=== PATIENT | male | born 1960 | race Hispanic/Latino ===

== ENCOUNTER 2019-01-25 15:26 | Emergency (ER) | payer OTHER ==
[~2019-01-25] VITALS: Ht 167.6 cm; Wt 81.6 kg
[~2019-01-25 15:26] MED LIST: BENAZEPRIL HCL20 MG ORAL; CYCLOBENZAPRINE10 MG ORAL; FLUTICASONE PRO16 G1 NASAL; IBUPROFEN600 MG ORAL; PSEUDOEPHEDRINE30 MG PO
--- NOTE | 2019-01-25 15:30 | NUR ---
ED Nurse Note: Pt came in from home due to RLQ abdominal pain x 1 week and vomiting x 1 episode, mass felt, confirmed by Dr. Boone that is it hernia. Pain 10/10 at this time. Emesis was undigested food, NO blood, NO bile. AOOx4, elevated BP upon arrival, ERMD aware. Will cont to monitor.
--- NOTE | 2019-01-25 15:44 | Emergency Room Report ---
History of Present Illness General Chief Complaint: Abdominal Pain Source: Patient Present Illness HPI Presents with 2 weeks of abdominal discomfort. This morning this became severe. He feels that big ball in the right lower quadrant it was not there before. He is status post appendectomy. He has not taken any medication for pain. He rates the pain 9-10/10, aching pressure and constant. No change in bowels. He vomited and denies any coffee grounds or blood. Status post appendectomy Status post coronary artery bypass graft surgery with 4 vessels. History of hypertension. He states that his blood pressures been normal after he had bypass surgery. Not diabetic but states he has had injury to his pancreas in the past. Clarification of the issue with the pancreas: He states he has a pancreatic mass that has not had full evaluation. Apparently he is due to have surgery at some point in the near future but has not been scheduled. Based on the CT scan he has a biliary stent. Allergies: Coded Allergies: No Known Allergies (Unverified , 08/14/14) Patient History Past Medical History: see triage record Past Surgical History: CABG, appy, other - Biliary stent Social History: Denies: smoking, alcohol use, drug use Social History Narrative - born in [facility] Reviewed Nursing Documentation: PMH: Agreed; PSxH: Agreed Nursing Documentation-PMH Hx Cardiac Problems: Yes Hx Hypertension: Yes Review of Systems All Other Systems: negative except mentioned in HPI Physical Exam Vital Signs Date Time Temp Pulse Resp B/P (MAP) Pulse Ox O2 Delivery O2 Flow Rate FiO2 01/25/19 15:16 97.7 87 16 180/90 (120) 98 Room Air Sp02 EP Interpretation: reviewed, normal General Appearance: well appearing, GCS 15, mild distress Head: normocephalic, atraumatic Eyes: bilateral eye normal inspection, bilateral eye PERRL, bilateral eye EOMI ENT: moist mucus membranes Neck: supple Respiratory: lungs clear, normal breath sounds Cardiovascular #1: regular rate, rhythm Cardiovascular #2: 2+ radial (R) Gastrointestinal: normal inspection, normal bowel sounds, non tender, non- distended, no rebound, guarding, tenderness, mass - Outside of the abdominal wall on the right-hand side 3 x 5 cm just underneath the appendectomy scar this is the site of his pain. Genitourinary: no CVA tenderness Musculoskeletal: back normal, gait/station normal, normal range of motion Neurologic: alert, oriented x3, grossly normal Psychiatric: mood/affect normal Skin: no rash, other - CABG and appendectomy scar Procedures Additional Procedure Procedure Narrative Reduction of hernia: After Dilaudid given, patient told to relax his abdomen and take a deep breath. With direct pressure hernia reduced by me. Tolerated well. His occurred prior to the CT scan. Medical Decision Making Diagnostic Impression: Primary Impression: Abdominal pain Qualified Codes: R10.31 - Right lower quadrant pain Additional Impressions: Spigelian hernia Pancreatic mass ER Course Patient presents with severe right lower quadrant pain and is post appendectomy. Differential includes incarcerated hernia, renal stone, diverticulitis, UTI amongst others. Based on exam I incarcerated spigelian hernia is most likely. Patient evaluated with chest x-ray, EKG and CT abdomen with contrast. Treated with IV hydration and analgesia. We will attempt to reduce the hernia after he receives analgesics. EKG with nonspecific ST-T wave changes. White count normal. After analgesia given hernia reduced by me. Still needs to have CT to identify if there is inflammation. The fact the white count is normal is encouraging. CT with pancreatic mass, inflammation RLQ (post reduction) + see results below. Pain improved but needs observation. Discussed with Dr. Key who accepts the patient. Patient initially refuses transfer then agreed to go for observation. Laboratory Tests Test 01/25/19 15:40 White Blood Count 8.8 K/UL (4.8-10.8) Red Blood Count 4.28 M/UL (4.70-6.10) L Hemoglobin 11.4 G/DL (14.2-18.0) L Hematocrit 34.9 % (42.0-52.0) L Mean Corpuscular Volume 82 FL (80-99) Mean Corpuscular Hemoglobin 26.8 PG (27.0-31.0) L Mean Corpuscular Hemoglobin Concent 32.8 G/DL (32.0-36.0) Red Cell Distribution Width 14.5 % (11.6-14.8) Platelet Count 272 K/UL (150-450) Mean Platelet Volume 7.1 FL (6.5-10.1) Neutrophils (%) (Auto) 71.6 % (45.0-75.0) Lymphocytes (%) (Auto) 20.4 % (20.0-45.0) Monocytes (%) (Auto) 6.8 % (1.0-10.0) Eosinophils (%) (Auto) 0.6 % (0.0-3.0) Basophils (%) (Auto) 0.6 % (0.0-2.0) Prothrombin Time 10.9 SEC (9.30-11.50) Prothrombin Time INR 1.0 (0.9-1.1) PTT 21 SEC (23-33) L Urine Color Yellow Urine Appearance Clear Urine pH 5 (4.5-8.0) Urine Specific [place] 1.020 (1.005-1.035) Urine Protein 2+ (NEGATIVE) H Urine Glucose (UA) 4+ (NEGATIVE) H Urine Ketones 1+ (NEGATIVE) H Urine Blood Negative (NEGATIVE) Urine Nitrite Negative (NEGATIVE) Urine Bilirubin Negative (NEGATIVE) Urine Urobilinogen Normal MG/DL (0.0-1.0) Urine Leukocyte Esterase Negative (NEGATIVE) Urine RBC 0 /HPF (0 - 0) Urine WBC 0 /HPF (0 - 0) Urine Squamous Epithelial Cells Occasional /LPF Urine Calcium Oxalate Crystals Many /LPF (NONE) Urine Bacteria Occasional /HPF (NONE) Sodium Level 139 MMOL/L (136-145) Potassium Level 3.6 MMOL/L (3.5-5.1) Chloride Level 102 MMOL/L (98-107) Carbon Dioxide Level 25 MMOL/L (21-32) Anion Gap 12 mmol/L (5-15) Blood Urea Nitrogen 13 mg/dL (7-18) Creatinine 0.8 MG/DL (0.55-1.30) Estimate Glomerular Filtration Rate > 60 mL/min (>60) Glucose Level 378 MG/DL (74-106) H Calcium Level 9.6 MG/DL (8.5-10.1) Total Bilirubin 0.5 MG/DL (0.2-1.0) Aspartate Amino Transferase (AST) 22 U/L (15-37) Alanine Aminotransferase (ALT) 46 U/L (12-78) Alkaline Phosphatase 183 U/L (46-116) H Total Protein 7.6 G/DL (6.4-8.2) Albumin 3.6 G/DL (3.4-5.0) Globulin 4.0 g/dL Albumin/Globulin Ratio 0.9 (1.0-2.7) L Lipase 249 U/L (73-393) EKG Diagnostic Results Rate: normal Rhythm: NSR ST Segments: no acute changes - Nonspecific ST-T wave changes Rhythm Strip Diag. Results EP Interpretation: yes Rhythm: NSR, no PVC's, no ectopy CT/MRI/US Diagnostic Results CT/MRI/US Diagnostic Results : Imaging Test Ordered: abd pelvis Impression Pancreatic head mass heterogeneous hypodense measuring 27 x 17mm. Concern for neoplasm. Mild dilatation of the main pancreatic duct. Numerous hypodense small lesions involving the liver. Too small to characterize. Intra-peritoneal bili identified. Biliary stent identified. Distended gallbladder with air at the gallbladder fundus. No lobular wall thickening or surrounding fluid Dilated fluid-filled loops of small bowel in the right lower to mid abdomen raise concern for developing bowel obstruction process. Last Vital Signs Date Time Temp Pulse Resp B/P (MAP) Pulse Ox O2 Delivery O2 Flow Rate FiO2 01/25/19 21:30 71 19 118/69 100 Room Air 01/25/19 18:49 97.7 Status: improved Disposition: XFER SHT-TRM HOSP Condition: Serious Jimbo Boone MD Jan 25, 2019 15:44
[2019-01-25] MEDS ORDERED: HYDROmorphone 1 MG in NS 55 ML IV ONE (15:45)
[2019-01-25] MEDS ORDERED: Omnipaque-300 100ml vial INJ PRN (16:00)
[2019-01-25 16:03] LABS: BASOPHILS % (AUTO) 0.6 % (0.0-2.0); EOSINOPHILS % (AUTO) 0.6 % (0.0-3.0); HEMATOCRIT 34.9 % (42.0-52.0); HEMOGLOBIN 11.4 G/DL (14.2-18.0); LYMPHOCYTES % (AUTO) 20.4 % (20.0-45.0); MEAN CORPUSCULAR VOLUME 82 FL (80-99); MONOCYTES % (AUTO) 6.8 % (1.0-10.0); NEUTROPHILS % (AUTO) 71.6 % (45.0-75.0); PLATELET COUNT 272 K/UL (150-450); RED BLOOD COUNT 4.28 M/UL (4.70-6.10); RED CELL DISTRIBUTION WIDTH 14.5 % (11.6-14.8); WHITE BLOOD COUNT 8.8 K/UL (4.8-10.8)
[2019-01-25 16:05] LABS: APPEARANCE,URINE CLEAR; BILIRUBIN, URINE NEGATIVE (NEGATIVE); GLUCOSE, URINE (UA) 4+ (NEGATIVE); KETONES,URINE 1+ (NEGATIVE); LEUKOCYTE ESTERASE ,URINE NEGATIVE (NEGATIVE); NITRITE,URINE NEGATIVE (NEGATIVE); PH,URINE 5 (4.5-8.0); PROTEIN,URINE 2+ (NEGATIVE); UROBILINOGEN,URINE NORMAL MG/DL (0.0-1.0)
[2019-01-25 16:07] LABS: COLOR,URINE YELLOW
[2019-01-25 16:19] LABS: ANION GAP 12 mmol/L (5-15); BLOOD UREA NITROGEN 13 mg/dL (7-18); CALCIUM 9.6 MG/DL (8.5-10.1); CARBON DIOXIDE 25 MMOL/L (21-32); CHLORIDE 102 MMOL/L (98-107); CREATININE 0.8 MG/DL (0.55-1.30); POTASSIUM 3.6 MMOL/L (3.5-5.1); SODIUM 139 MMOL/L (136-145)
[2019-01-25 16:22] LABS: ALANINE AMINOTRANSFERASE 46 U/L (12-78); ALBUMIN 3.6 G/DL (3.4-5.0); ALBUMIN/GLOBULIN RATIO 0.9 (1.0-2.7); ALKALINE PHOSPHATASE 183 U/L (46-116); ASPARTATE AMINO TRANSFERASE 22 U/L (15-37); BILIRUBIN,TOTAL 0.5 MG/DL (0.2-1.0)
[2019-01-25 16:39] VITALS: BP 124/60
--- NOTE | 2019-01-25 17:50 | Diagnostic Imaging Report ---
CT ABDOMEN AND PELVIS WITH CONTRAST INDICATION: Abdominal pain TECHNIQUE: Continuous helical transaxial imaging of the abdomen and pelvis was obtained from the lung bases to the pubic symphysis during intravenous contrast administration. Coronal 2-D reformats were also obtained. Study obtained in a Siemens sensation [address] Automatic Exposure Control was utilized. Total Dose length Product (DLP): 800.[address] Dose Index Volume (CTDIvol): 13.2 mGy COMPARISON: None FINDINGS: Lower chest:: Minimal dependent subsegmental atelectasis. Hepatobiliary:: There is extensive, predominantly central pneumobilia with an indwelling common bile duct stent. There are innumerable subcentimeter and 1 cm hypodensities throughout the liver parenchyma. Gallbladder is mildly distended and contains antidependent focus of gas. Genitourinary:: Marked prostatomegaly. Bladder is unremarkable. No hydronephrosis. Scattered subcentimeter bilateral renal cysts. Adrenals:: Unremarkable. Pancreas:: In the pancreatic head, there is an ill-defined heterogeneously hypodense mass measuring approximately 2.7 x 1.7 cm in axial dimensions. The main pancreatic duct is dilated, measuring approximately 4 mm in diameter. The main pancreatic duct is dilated, measuring approximately 4 mm in diameter. Pancreatic body and tail are unremarkable. Gastrointestinal:: There are scattered loops of small bowel distended with gas and fluid, some of which demonstrate air-fluid levels. Appendix is surgically absent. In the pancreatic head, there is an ill-defined heterogeneously hypodense mass measuring approximately 2.7 x 1.7 cm in axial dimensions. There is moderate stool burden in the rectal vault. Spleen: : Unremarkable. Peritoneum:: No significant free fluid or free air. Moderate fat-containing Spigelian hernia in the right lower quadrant. Bones and soft tissues:: There are multilevel discogenic degenerative changes of the visualized spine. IMPRESSION: 1. Ill-defined pancreatic head mass, corresponding to patient's stated history of known pancreatic mass, which should be considered neoplastic until proven otherwise. 2. Status post common bile duct stenting with resulting pneumobilia. 3. Innumerable hepatic hypodensities, which are too small to accurately characterize on single phase contrast examination and some of which may represent cysts. However, given presence of pancreatic head mass, findings are strongly suspicious for metastases. 4. Scattered dilated loops of small bowel, a nonspecific finding but which could represent gastroenteritis or ileus. These findings are concordant with the [facility] preliminary report. The CT scanner at [facility] is accredited by the [employer] and the scans are performed using protocols designed to limit radiation exposure to as low as reasonably achievable to attain images of sufficient resolution adequate for diagnostic evaluation.
--- NOTE | 2019-01-25 18:09 | NUR ---
ED Nurse Note: Dr. Boone communicated with pt that he will be transferred to another facility.
[2019-01-25 18:49] VITALS: BP 139/86
[2019-01-25 19:40] VITALS: BP 124/77
--- NOTE | 2019-01-25 20:59 | NUR ---
ER Nurse Note: Talked to Marcy, case finishing machine adjuster, about CT results. Per Marcy, she will transer the case to Jimbo, wedding coordinator for possible transfer admission.
--- NOTE | 2019-01-25 21:18 | NUR ---
ED Nurse Note: [facility] unit 617 will transfer pt. vital signs are: HR 71 SpO2: 100% on room air RR: 19 BP: 118/69
[2019-01-25 21:30] VITALS: BP 118/69
--- NOTE | 2019-01-25 21:50 | NUR ---
ED Nurse Note: report given to Phuong SUERO at [facility]
--- NOTE | 2019-01-26 09:52 | Diagnostic Imaging Report ---
Indication: Reason For Exam: ABD PAIN Technique: Single AP view of the chest. Comparison: Chest radiograph dated 08/14/2014 Findings: No cardiomegaly. Coronary stents are noted. No airspace consolidation, pleural effusion, or pneumothorax. No acute osseous or normality. Median sternotomy wires aren't preserved alignment. IMPRESSION: No radiographic evidence of acute cardiopulmonary process.
--- NOTE | 2019-01-28 07:32 | Cardiology Report ---
APPROVED REPORT EKG Measurement Heart [id number] Normal sinus rhythm Inferior infarct, age undetermined Abnormal ECG
== END 2019-01-25 21:30 | disposition short-term general hospital (02) ==
LOC: EDBD 15:26 → EMR 16:45 → EDBEDREQ 18:06 → EMR 21:30
DX: R10.31 Right lower quadrant pain (principal); K43.9 Ventral hernia without obstruction or gangrene; K86.9 Disease of pancreas, unspecified; I10 Essential (primary) hypertension; Z90.49 Acquired absence of other specified parts of digestive tract; Z95.1 Presence of aortocoronary bypass graft; Z95.5 Presence of coronary angioplasty implant and graft
CPT/HCPCS: 36415; 71045; 74177; 80053; 81003; 83690; 85025; 85610; 85730; 86850; 86900; 86901; 93005; 96361; 96374; 96375; J1170; J2405; Q9967; Z7502; 99285; J7030

== ENCOUNTER 2019-02-23 17:53 | Inpatient (IN) | payer OTHER ==
[~2019-02-23] VITALS: Ht 172.7 cm; Wt 65.4 kg
[2019-02-23 18:00] VITALS: BP 112/66
--- NOTE | 2019-02-23 18:00 | NUR ---
ED Nurse Note: Pt brought in by [facility] [id number] from home for c/o generalized weakness and abdominal pain onset 4 days ago. Pt states he had a fall 4 days ago where he landed on his abdomen. His abdomen has a healed incision scar s/p surgery on February 03 to remove liver cancer. Pt states he has become more weak and also fell again two days ago. Pt denies any LOC or head injury. Pt also reports bilateral feet swelling since the fall 4 days ago. Pt has hx of liver cancer. Pt is alert, awake and oriented x4, breathing is normal and unlabored, speaking in full sentences. Pt states abdominal pain is currently aching and 10/10. Pt placed on cardiac cath technician, placed in gown and will continue to monitor.
[2019-02-23] MEDS ORDERED: Omnipaque-300 100ml vial INJ PRN (18:15)
[2019-02-23] MEDS ORDERED: Morphine Sulfate 4mg/ml Inj (IV USE ONLY) IVP ONE (18:15)
[2019-02-23 18:38] LABS: HEMATOCRIT 13.8 % (42.0-52.0); MEAN CORPUSCULAR VOLUME 72 FL (80-99); PLATELET COUNT 199 K/UL (150-450); RED BLOOD COUNT 1.91 M/UL (4.70-6.10); RED CELL DISTRIBUTION WIDTH 18.8 % (11.6-14.8); WHITE BLOOD COUNT 10.2 K/UL (4.8-10.8)
[2019-02-23 18:40] LABS: ANION GAP 11 mmol/L (5-15); BLOOD UREA NITROGEN 23 mg/dL (7-18); CALCIUM 8.2 MG/DL (8.5-10.1); CARBON DIOXIDE 22 MMOL/L (21-32); CHLORIDE 101 MMOL/L (98-107); CREATININE 0.7 MG/DL (0.55-1.30); POTASSIUM 3.9 MMOL/L (3.5-5.1); SODIUM 134 MMOL/L (136-145)
[2019-02-23 18:45] LABS: ALANINE AMINOTRANSFERASE 104 U/L (12-78); ALBUMIN 2.5 G/DL (3.4-5.0); ALBUMIN/GLOBULIN RATIO 0.7 (1.0-2.7); ALKALINE PHOSPHATASE 433 U/L (46-116); ASPARTATE AMINO TRANSFERASE 78 U/L (15-37); BILIRUBIN,TOTAL 0.5 MG/DL (0.2-1.0)
--- NOTE | 2019-02-23 18:57 | NUR ---
HAND-OFF: Report given to PIO Lopez. endorsed pending urine sample collection and CT scan.
[2019-02-23 19:08] LABS: INR 1.2 (0.9-1.1)
[2019-02-23 19:12] LABS: HEMATOCRIT 11.9 % (42.0-52.0); MEAN CORPUSCULAR VOLUME 73 FL (80-99); PLATELET COUNT 165 K/UL (150-450); RED BLOOD COUNT 1.63 M/UL (4.70-6.10); RED CELL DISTRIBUTION WIDTH 18.7 % (11.6-14.8); WHITE BLOOD COUNT 9.2 K/UL (4.8-10.8)
[2019-02-23 19:16] LABS: HEMOGLOBIN 3.4 G/DL (14.2-18.0)
--- NOTE | 2019-02-23 20:14 | Diagnostic Imaging Report ---
Indication: Abdominal pain Technique: Continuous helical transaxial imaging of the abdomen and pelvis was obtained from the lung bases to the pubic symphysis during intravenous contrast administration. Coronal 2-D reformats were also obtained. Study obtained in a Siemens sensation [address] Automatic Exposure Control was utilized. Total Dose length Product (DLP): 792.[address] Dose Index Volume (CTDIvol): 13.4 mGy Comparison: 01/25/2019 CT Findings: There are multiple nodules within the liver increased in size and number compared to the prior study. Findings consistent with metastatic neoplasm. There is a mass in the area of the pancreatic head likely involving the duodenum. Biliary stent previously demonstrated is no longer seen. There is pneumobilia present. The patient has had interval stomach surgery with the staple line noted in the stomach with evidence of resection of the body and antrum of the stomach. There is no evidence of bowel obstruction. Prostate is prominent. Bladder is mildly distended. There is no hydronephrosis. Adrenal glands spleen and kidneys are unremarkable. Mild aortoiliac calcifications are noted. IMPRESSION: Status post interval removal of a CBD stent. Persistent pneumobilia indicating patency of the CBD. Multiple, worsening liver hypodensities consistent with metastatic neoplasm. Pancreatic head mass consistent with the given history of pancreatic CTA. Status post interval partial stomach resection. Prostate hypertrophy and other incidental findings as above. [facility] has communicated the preliminary results to the Emergency Department. Their findings are largely concordant with this report. The CT scanner at [facility] is accredited by the [employer] and the scans are performed using dose optimization techniques as appropriate to a performed exam including Automatic Exposure control.
[2019-02-23 20:15] VITALS: BP 106/55
--- NOTE | 2019-02-23 20:15 | NUR ---
ED Nurse Note: First unit of blood was started, patient's VSS at this time.
[2019-02-23 20:30] VITALS: BP 100/58
--- NOTE | 2019-02-23 20:30 | NUR ---
ED Nurse Note: 15 min passed, no blood transfusion reaction noticed, VSS at this time.
--- NOTE | 2019-02-23 20:50 | Emergency Room Report ---
History of Present Illness General Chief Complaint: Generalized Weakness Source: Patient, Family Member Present Illness HPI 58-year-old male presents ED for evaluation. Brought in by EMS from home. Increased weakness. Started a few days ago. States that he has been diagnosed with pancreatic cancer. Had surgery few weeks ago at [facility] where they told him the cancer is too far progressed. Is currently scheduled for chemo or radiation. Patient states that since the surgery he had a fall and has been having increased pain in his abdomen. 10 out of 10, sharp, nonradiating. Denies fevers chills. States he has been having palpitations as well. Denies chest pain. Denies shortness of breath. No other aggravating relieving factors. Denies any other associated symptoms Allergies: Coded Allergies: No Known Allergies (Unverified , 08/14/14) Patient History Past Medical History: other - cancer Past Surgical History: none Pertinent Family History: none Social History: Denies: smoking, alcohol use, drug use Reviewed Nursing Documentation: PMH: Agreed; PSxH: Agreed Nursing Documentation-PMH Past Medical History: No History, Except For Hx Cardiac Problems: Yes Hx Hypertension: Yes Hx Cancer: Yes - liver cancer Review of Systems All Other Systems: negative except mentioned in HPI Physical Exam Vital Signs Date Time Temp Pulse Resp B/P (MAP) Pulse Ox O2 Delivery O2 Flow Rate FiO2 02/23/19 17:47 97.5 107 16 103/59 (74) 98 Room Air Sp02 EP Interpretation: reviewed, normal General Appearance: alert, GCS 15, non-toxic, cachetic Head: normocephalic, atraumatic Eyes: bilateral eye normal inspection, bilateral eye PERRL ENT: hearing grossly normal, normal pharynx, no angioedema, normal voice Neck: full range of motion, supple/symm/no masses Respiratory: chest non-tender, lungs clear, normal breath sounds, speaking full sentences Cardiovascular #1: regular rate, rhythm, no edema Cardiovascular #2: 2+ carotid (R), 2+ carotid (L), 2+ radial (R), 2+ radial (L) , 2+ dorsalis pedis (R), 2+ dorsalis pedis (L) Gastrointestinal: normal bowel sounds, soft, non-distended, no guarding, no rebound, tenderness, other - surgical scar abdomen. Rectal: deferred Genitourinary: normal inspection, no CVA tenderness Musculoskeletal: back normal, normal range of motion, gait/station normal, non- tender Neurologic: alert, motor strength/tone normal, oriented x3, sensory intact, responsive, speech normal Psychiatric: judgement/insight normal, memory normal, mood/affect normal, no suicidal/homicidal ideation Reflexes: 3+ bicep (R), 3+ bicep (L), 3+ tricep (R), 3+ tricep (L), 3+ knee (R) , 3+ knee (L) Skin: pallor Lymphatic: no adenopathy Procedures Critical Care Time Critical Care Time i. I feel this is a highly complex case requiring extensive working including EKG/Rhythm strip, Xray/CT/US, Blood/urine lab work, repeat exams while in ED, and administration of strong opiates/narcotics for pain control, admission to hospital or close patient follow up. Total time: 45 min bedside evaluation and treatment excludes procedures (EKG). Reason for critical care: severe anemia, elevated troponin Possible complications: hypotension, hypertension, DE, shock, arrhythmias, metabolic acidosis, end organ damage, respiratory failure. Interventions: labs, IVFs, EKG, pain meds, CT Course: Patient presenting with increased weakness, abdominal pain status post fall. Recently diagnosed with pancreatic cancer with mets. Hemoglobin 3.4. Troponin slightly elevated. Likely demand ischemia. T wave inversions in lateral leads. CT shows pancreatic mass with mets. Blood transfusion ordered and started in ED Consultations: nursing staff, EMS, family Performed by: Dr Guzman Tolerated well condition = serious j. because of unstable vital signs this patient had a condition that could potentially threaten life or limb. I feel this is a critical patient who required my full attention while patient was considered critical. Total Critical Care Time excluding procedures was greater than 45 minutes Medical Decision Making Diagnostic Impression: Primary Impression: Episode of generalized weakness Additional Impressions: Pancreatic cancer Qualified Codes: C25.9 - Malignant neoplasm of pancreas, unspecified Metastasis Qualified Codes: C79.9 - Secondary malignant neoplasm of unspecified site Elevated troponin Severe anemia ER Course Hospital Course 58 yo M presents with abd pain s/p fall.h/o pancreatic cancer Differential diagnoses include: obstruction, dehydration, viscus perforation Clinical course Patient placed on stretcher. quality assurance monitor chassis. After initial history and physical I ordered labs, IV fluids, UA, pain medication and CT scan Labs - no leukocytosis, Hb 3.4. electrolytes ok, LFTs elevated, Trop 0.067 CT abdomen and pelvis - pancreatit mass with mets. no perforation or intraperitoneal bleeding Vitals stable. Blood transfusion started. Discussed findings with patient. Case discussed with Dr. Hernandez and he agreed to accept the patient to his service for further care and support I feel this is a highly complex case requiring extensive working including EKG/ Rhythm strip, Xray/CT/US, Blood/urine lab work, repeat exams while in ED, and administration of strong opiates/narcotics for pain control, admission to hospital or close patient follow up. Diagnosis - episode of generalized weakness, pancreatic cancer, metastasis, elevated troponin, severe anemia Patient admitted to telemetry in serious condition Labs Test 02/23/19 18:20 02/23/19 19:00 White Blood Count 10.2 K/UL (4.8-10.8) 9.2 K/UL (4.8-10.8) Red Blood Count 1.91 M/UL (4.70-6.10) 1.63 M/UL (4.70-6.10) Hemoglobin 4.0 G/DL (14.2-18.0) 3.4 G/DL (14.2-18.0) Hematocrit 13.8 % (42.0-52.0) 11.9 % (42.0-52.0) Mean Corpuscular Volume 72 FL (80-99) 73 FL (80-99) Mean Corpuscular Hemoglobin 20.7 PG (27.0-31.0) 20.8 PG (27.0-31.0) Mean Corpuscular Hemoglobin Concent 28.7 G/DL (32.0-36.0) 28.5 G/DL (32.0-36.0) Red Cell Distribution Width 18.8 % (11.6-14.8) 18.7 % (11.6-14.8) Platelet Count 199 K/UL (150-450) 165 K/UL (150-450) Mean Platelet Volume 6.2 FL (6.5-10.1) 6.3 FL (6.5-10.1) Neutrophils (%) (Auto) % (45.0-75.0) % (45.0-75.0) Lymphocytes (%) (Auto) % (20.0-45.0) % (20.0-45.0) Monocytes (%) (Auto) % (1.0-10.0) % (1.0-10.0) Eosinophils (%) (Auto) % (0.0-3.0) % (0.0-3.0) Basophils (%) (Auto) % (0.0-2.0) % (0.0-2.0) Differential Total Cells Counted 100 Neutrophils % (Manual) 86 % (45-75) Lymphocytes % (Manual) 7 % (20-45) Monocytes % (Manual) 6 % (1-10) Eosinophils % (Manual) 0 % (0-3) Basophils % (Manual) 0 % (0-2) Band Neutrophils 1 % (0-8) Nucleated Red Blood Cells 3 /100 WBC Platelet Estimate Adequate Platelet Morphology Normal Polychromasia 1+ Hypochromasia 4+ Anisocytosis 3+ Microcytosis 2+ Prothrombin Time 12.7 SEC (9.30-11.50) Prothromb Time International Ratio 1.2 (0.9-1.1) Activated Partial Thromboplast Time 22 SEC (23-33) Sodium Level 134 MMOL/L (136-145) Potassium Level 3.9 MMOL/L (3.5-5.1) Chloride Level 101 MMOL/L (98-107) Carbon Dioxide Level 22 MMOL/L (21-32) Anion Gap 11 mmol/L (5-15) Blood Urea Nitrogen 23 mg/dL (7-18) Creatinine 0.7 MG/DL (0.55-1.30) Estimat Glomerular Filtration Rate > 60 mL/min (>60) Glucose Level 256 MG/DL (74-106) Calcium Level 8.2 MG/DL (8.5-10.1) Total Bilirubin 0.5 MG/DL (0.2-1.0) Aspartate Amino Transf (AST/SGOT) 78 U/L (15-37) Alanine Aminotransferase (ALT/SGPT) 104 U/L (12-78) Alkaline Phosphatase 433 U/L (46-116) Troponin I 0.067 ng/mL (0.000-0.056) Total Protein 6.2 G/DL (6.4-8.2) Albumin 2.5 G/DL (3.4-5.0) Globulin 3.7 g/dL Albumin/Globulin Ratio 0.7 (1.0-2.7) Lipase 39 U/L (73-393) EKG Diagnostic Results Rate: normal Rhythm: NSR ST Segments: other - twave inversions in lateral leads ASA given to the pt in ED: No Rhythm Strip Diag. Results EP Interpretation: yes Rhythm: NSR, no PVC's, no ectopy CT/MRI/US Diagnostic Results CT/MRI/US Diagnostic Results : Imaging Test Ordered: CT A/P Impression Comparison CT 01/25/2019 Pancreatic head mass again visualized which appears centrally necrotic. Atrophy of the upstream pancreas with ductal dilatation. The pancreatic head mass involves the second segment of the duodenum. Recent postsurgical changes from a hepaticojejunostomy. A few foci of gas within the abdominal wall, postsurgical. No free air. No obstruction. Increased number and increased size of the innumerable hepatic metastatic lesions. No portal vein thrombosis. Right lower quadrant fat-containing hernia. Prostatomegaly. Last Vital Signs Date Time Temp Pulse Resp B/P (MAP) Pulse Ox O2 Delivery O2 Flow Rate FiO2 02/23/19 20:30 97.0 80 14 02/23/19 18:00 Room Air 02/23/19 18:00 112/66 100 Status: improved Disposition: ADMITTED INPATIENT Condition: Serious Referrals: [facility],REFERR[facility] (PCP) Misha Guzman MD Feb 23, 2019 20:50
--- NOTE | 2019-02-23 21:48 | History & Physical ---
History and Physical History & Physicial History and Physical HPI Patient is a 58-year-old man with history of Metastatic Pancreatic Cancer with extensive Liver Metastases, admitted with severe Anemia, had complained of increasing weakness, palpitations for a few days. Had surgery few weeks ago at [facility] where they told him the cancer is too far progressed. Awaiting chemo and/or radiation. Patient states that since the surgery he had a fall and has been having increased pain in his abdomen. Denies fevers chills , chest pain, shortness of breath. Allergies: No Known Allergies Patient History Past Medical History: Metastatic Pancreatic Cancer with extensive Liver Metastases, Hypertension, Hypertensive Heart Disease Past Surgical History: Recent abdominal surgery Social History: Denies: smoking, alcohol use, drug use All Other Systems: negative except mentioned in HPI Physical Exam Vital Signs Noted Date Time Temp Pulse Resp B/P (MAP) Pulse Ox O2 Delivery O2 Flow Rate FiO2 02/23/19 17:47 97.5 107 16 103/59 (74) 98 Room Air General Appearance: alert, GCS 15, non-toxic, cachetic, pale Head: normocephalic, atraumatic Eyes: bilateral eye normal inspection, bilateral eye PERRL ENT: hearing grossly normal, normal pharynx, no angioedema, normal voice Neck: full range of motion, supple/symm/no masses/no lN Respiratory: chest non-tender, lungs clear, normal breath sounds, speaking full sentences Cardiovascular: regular rate, rhythm, HS1, HS2 normal, no edema Gastrointestinal: normal bowel sounds, soft, non-distended, no guarding, no rebound, tenderness, other - surgical scar abdomen. Rectal: deferred Genitourinary: normal inspection, no CVA tenderness Musculoskeletal: back normal, normal range of motion, gait/station normal, non- tender Neurologic: alert, motor strength/tone normal, oriented x3, sensory intact, responsive, speech normal Skin: pallor Impression: Severe Anemia Episode of generalized weakness Metastatic Pancreatic cancer Elevated troponin, possibly demand related Hypertension Plan: Transfuse PRN Protonix IVF PRN Will need GI/Cardiology Consults [employer] medications PPX O2 PRN Labs Test 02/23/19 18:20 02/23/19 19:00 White Blood Count 10.2 K/UL (4.8-10.8) 9.2 K/UL (4.8-10.8) Red Blood Count 1.91 M/UL (4.70-6.10) 1.63 M/UL (4.70-6.10) Hemoglobin 4.0 G/DL (14.2-18.0) 3.4 G/DL (14.2-18.0) Hematocrit 13.8 % (42.0-52.0) 11.9 % (42.0-52.0) Mean Corpuscular Volume 72 FL (80-99) 73 FL (80-99) Mean Corpuscular Hemoglobin 20.7 PG (27.0-31.0) 20.8 PG (27.0-31.0) Mean Corpuscular Hemoglobin Concent 28.7 G/DL (32.0-36.0) 28.5 G/DL (32.0-36.0) Red Cell Distribution Width 18.8 % (11.6-14.8) 18.7 % (11.6-14.8) Platelet Count 199 K/UL (150-450) 165 K/UL (150-450) Mean Platelet Volume 6.2 FL (6.5-10.1) 6.3 FL (6.5-10.1) Neutrophils (%) (Auto) % (45.0-75.0) % (45.0-75.0) Lymphocytes (%) (Auto) % (20.0-45.0) % (20.0-45.0) Monocytes (%) (Auto) % (1.0-10.0) % (1.0-10.0) Eosinophils (%) (Auto) % (0.0-3.0) % (0.0-3.0) Basophils (%) (Auto) % (0.0-2.0) % (0.0-2.0) Differential Total Cells Counted 100 Neutrophils % (Manual) 86 % (45-75) Lymphocytes % (Manual) 7 % (20-45) Monocytes % (Manual) 6 % (1-10) Eosinophils % (Manual) 0 % (0-3) Basophils % (Manual) 0 % (0-2) Band Neutrophils 1 % (0-8) Nucleated Red Blood Cells 3 /100 WBC Platelet Estimate Adequate Platelet Morphology Normal Polychromasia 1+ Hypochromasia 4+ Anisocytosis 3+ Microcytosis 2+ Prothrombin Time 12.7 SEC (9.30-11.50) Prothromb Time International Ratio 1.2 (0.9-1.1) Activated Partial Thromboplast Time 22 SEC (23-33) Sodium Level 134 MMOL/L (136-145) Potassium Level 3.9 MMOL/L (3.5-5.1) Chloride Level 101 MMOL/L (98-107) Carbon Dioxide Level 22 MMOL/L (21-32) Anion Gap 11 mmol/L (5-15) Blood Urea Nitrogen 23 mg/dL (7-18) Creatinine 0.7 MG/DL (0.55-1.30) Estimat Glomerular Filtration Rate > 60 mL/min (>60) Glucose Level 256 MG/DL (74-106) Calcium Level 8.2 MG/DL (8.5-10.1) Total Bilirubin 0.5 MG/DL (0.2-1.0) Aspartate Amino Transf (AST/SGOT) 78 U/L (15-37) Alanine Aminotransferase (ALT/SGPT) 104 U/L (12-78) Alkaline Phosphatase 433 U/L (46-116) Troponin I 0.067 ng/mL (0.000-0.056) Total Protein 6.2 G/DL (6.4-8.2) Albumin 2.5 G/DL (3.4-5.0) Globulin 3.7 g/dL Albumin/Globulin Ratio 0.7 (1.0-2.7) Lipase 39 U/L (73-393) EKG: Rate: normal Rhythm: NSR ST Segments: other - twave inversions in lateral leads ASA given to the pt in ED: No CT A/P Comparison CT 01/25/2019 Pancreatic head mass again visualized which appears centrally necrotic. Atrophy of the upstream pancreas with ductal dilatation. The pancreatic head mass involves the second segment of the duodenum. Recent postsurgical changes from a hepaticojejunostomy. A few foci of gas within the abdominal wall, postsurgical. No free air. No obstruction. Increased number and increased size of the innumerable hepatic metastatic lesions. No portal vein thrombosis. Right lower quadrant fat-containing hernia. Prostatomegaly. Jimbo Piper MD Feb 23, 2019 21:48
[2019-02-23 22:00] VITALS: BP 113/62
--- NOTE | 2019-02-23 22:00 | NUR ---
ED Nurse Note: second unit of blood was started, patient's VSS at this time.
--- NOTE | 2019-02-23 22:50 | NUR ---
NURSE NOTES: Report received from PIO Lopez. Waiting for bed in SDU. Will call when bed is available to transfer.
--- NOTE | 2019-02-23 23:00 | NUR ---
ED Nurse Note: Patient was admited to SDU unit due to anemia, CP, ABD pain. Patient AAO x 4, VSS at this time, skin is intact. Patient was transfered with blood running at rate 200/hr. Patient was transfered via gurney, by ACLS protocol, with all belongings.
[2019-02-23] MEDS ORDERED: D5 1/2NS 1,000 ML IV SCH (23:30)
[2019-02-24] MEDS ORDERED: NORCO 10/3251 EA ORAL (00:11)
[2019-02-24] MEDS ORDERED: LISINOPRIL5 MG ORAL (00:11)
[2019-02-24] MEDS ORDERED: CARVEDILOL6.25 MG ORAL (00:11)
[2019-02-24] MEDS ORDERED: CLOPIDOGREL75 MG ORAL (00:11)
[2019-02-24] MEDS: HYDROmorphone 1mg/ml Carpuject IVP PRN ×3 (01:35→21:52)
[2019-02-24] MEDS ORDERED: D5 1/2NS 1,000 ML IV SCH (03:15)
[2019-02-24 05:18] LABS: BASOPHILS % (AUTO) 0.7 % (0.0-2.0); EOSINOPHILS % (AUTO) 0.7 % (0.0-3.0); HEMATOCRIT 26.5 % (42.0-52.0); HEMOGLOBIN 8.7 G/DL (14.2-18.0); LYMPHOCYTES % (AUTO) 14.4 % (20.0-45.0); MEAN CORPUSCULAR VOLUME 77 FL (80-99); MONOCYTES % (AUTO) 6.8 % (1.0-10.0); NEUTROPHILS % (AUTO) 77.4 % (45.0-75.0); PLATELET COUNT 133 K/UL (150-450); RED BLOOD COUNT 3.43 M/UL (4.70-6.10); RED CELL DISTRIBUTION WIDTH 15.9 % (11.6-14.8); WHITE BLOOD COUNT 11.2 K/UL (4.8-10.8)
[2019-02-24 05:54] LABS: ALANINE AMINOTRANSFERASE 103 U/L (12-78); ALBUMIN 2.5 G/DL (3.4-5.0); ALBUMIN/GLOBULIN RATIO 0.7 (1.0-2.7); ALKALINE PHOSPHATASE 413 U/L (46-116); ANION GAP 5 mmol/L (5-15); ASPARTATE AMINO TRANSFERASE 74 U/L (15-37); BILIRUBIN,DIRECT 0.3 MG/DL (0.0-0.3); BILIRUBIN,TOTAL 1.3 MG/DL (0.2-1.0); BLOOD UREA NITROGEN 17 mg/dL (7-18); CALCIUM 7.9 MG/DL (8.5-10.1); CARBON DIOXIDE 27 MMOL/L (21-32); CHLORIDE 103 MMOL/L (98-107); CREATININE 0.6 MG/DL (0.55-1.30); POTASSIUM 3.9 MMOL/L (3.5-5.1); SODIUM 135 MMOL/L (136-145)
[2019-02-24] MEDS: HydrALAZINE 25mg tab ORAL SCH ×4 (06:00→17:30)
--- NOTE | 2019-02-24 07:20 | NUR ---
NURSE NOTES: Received report from PIO Abreu. Patient is resting in bed, in stable condition. No s/sx of SOB, breathing is even and unlabored. Denies any presence of pain or discomfort at this time. Bed is in lowest position, brakes engaged. Call light is kept within easy reach. Will continue to monitor patient.
--- NOTE | 2019-02-24 07:25 | NUR ---
HAND-OFF: Report given to PIO Weiner.
[2019-02-24 08:00] VITALS: BP 112/65
[2019-02-24] MEDS: Carvedilol 6.25mg Tab ORAL SCH ×2 (08:16→21:00)
[2019-02-24] MEDS: Pantoprazole Inj IVP SCH ×2 (08:18→21:51)
--- NOTE | 2019-02-24 08:53 | General Progress Note ---
Assessment/Plan Assessment/Plan: Impression: Severe Anemia generalized weakness Metastatic Pancreatic cancer Elevated troponin, likely demand related Hypertension Plan: Transfused Protonix called GI/Cardiology Consults [employer] medications PPX O2 PRN dc planning if cleared by all impression, plan, and exam edited and reviewed in detail care discussed with RN Subjective Allergies: Coded Allergies: No Known Allergies (Unverified , 08/14/14) Subjective improved HH cp free Objective Last 24 Hour Vital Signs Date Time Temp Pulse Resp B/P (MAP) Pulse Ox O2 Delivery O2 Flow Rate FiO2 02/24/19 08:00 2.0 02/24/19 08:00 Nasal Cannula 2.0 02/24/19 06:00 111/58 02/24/19 04:00 Nasal Cannula 2.0 02/24/19 04:00 78 02/24/19 04:00 2.0 02/24/19 02:05 97.4 02/24/19 00:38 Room Air 2.0 02/24/19 00:00 111/58 02/23/19 23:30 74 02/23/19 23:00 97.4 80 18 113/62 100 Room Air 02/23/19 22:00 97.4 80 18 113/62 100 Room Air 02/23/19 22:00 97.4 74 18 02/23/19 20:30 97.0 80 14 02/23/19 20:30 97.0 80 14 100/58 100 Room Air 02/23/19 20:15 97.1 83 16 106/55 100 Room Air 02/23/19 20:15 97.1 83 16 02/23/19 18:00 95 19 Room Air 02/23/19 18:00 97.5 95 19 112/66 100 Room Air 02/23/19 17:47 97.5 107 16 103/59 (74) 98 Room Air Intake and Output 02/23/19 02/24/19 18:59 06:59 Intake Total 0 ml Output Total 400 ml Balance 0 ml -400 ml Intake Oral 0 ml Output Urine Total 400 ml # Voids 1 Laboratory Tests 02/23/19 18:20: White Blood Count 10.2, Red Blood Count 1.91L, Hemoglobin 4.0*L, Hematocrit 13.8L, Mean Corpuscular Volume 72L, Mean Corpuscular Hemoglobin 20.7L, Mean Corpuscular Hemoglobin Concent 28.7L, Red Cell Distribution Width 18.8H, Platelet Count 199, Mean Platelet Volume 6.2L, Neutrophils (%) (Auto) , Lymphocytes (%) (Auto) , Monocytes (%) (Auto) , Eosinophils (%) (Auto) , Basophils (%) (Auto) , Differential Total Cells Counted 100, Neutrophils % ( Manual) 86H, Lymphocytes % (Manual) 7L, Monocytes % (Manual) 6, Eosinophils % ( Manual) 0, Basophils % (Manual) 0, Band Neutrophils 1, Nucleated Red Blood Cells 3, Platelet Estimate Adequate, Platelet Morphology Normal, Polychromasia 1 +, Hypochromasia 4+, Anisocytosis 3+, Microcytosis 2+, Prothrombin Time 12.7H, Prothromb Time International Ratio 1.2H, Activated Partial Thromboplast Time 22L , Sodium Level 134L, Potassium Level 3.9, Chloride Level 101, Carbon Dioxide Level 22, Anion Gap 11, Blood Urea Nitrogen 23H, Creatinine 0.7, Estimat Glomerular Filtration Rate > 60, Glucose Level 256H, Calcium Level 8.2L, Total Bilirubin 0.5, Aspartate Amino Transf (AST/SGOT) 78H, Alanine Aminotransferase ( ALT/SGPT) 104H, Alkaline Phosphatase 433H, Troponin I 0.067H, Total Protein 6.2L , Albumin 2.5L, Globulin 3.7, Albumin/Globulin Ratio 0.7L, Lipase 39L 02/23/19 19:00: White Blood Count 9.2, Red Blood Count 1.63L, Hemoglobin 3.4*L, Hematocrit 11.9L , Mean Corpuscular Volume 73L, Mean Corpuscular Hemoglobin 20.8L, Mean Corpuscular Hemoglobin Concent 28.5L, Red Cell Distribution Width 18.7H, Platelet Count 165, Mean Platelet Volume 6.3L, Neutrophils (%) (Auto) , Lymphocytes (%) (Auto) , Monocytes (%) (Auto) , Eosinophils (%) (Auto) , Basophils (%) (Auto) , Differential Total Cells Counted 100, Neutrophils % ( Manual) 84H, Lymphocytes % (Manual) 11L, Monocytes % (Manual) 5, Eosinophils % ( Manual) 0, Basophils % (Manual) 0, Band Neutrophils 0, Nucleated Red Blood Cells 2, Platelet Estimate Adequate, Platelet Morphology Normal, Polychromasia 1 +, Hypochromasia 4+, Anisocytosis 3+, Microcytosis 2+ 02/24/19 04:25: White Blood Count 11.2H, Red Blood Count 3.43L, Hemoglobin 8.7#L, Hematocrit 26.5#L, Mean Corpuscular Volume 77L, Mean Corpuscular Hemoglobin 25.3L, Mean Corpuscular Hemoglobin Concent 32.8, Red Cell Distribution Width 15.9H, Platelet Count 133L, Mean Platelet Volume 7.4, Neutrophils (%) (Auto) 77.4H, Lymphocytes (%) (Auto) 14.4L, Monocytes (%) (Auto) 6.8, Eosinophils (%) (Auto) 0.7, Basophils (%) (Auto) 0.7, Sodium Level 135L, Potassium Level 3.9, Chloride Level 103, Carbon Dioxide Level 27, Anion Gap 5, Blood Urea Nitrogen 17, Creatinine 0.6, Estimat Glomerular Filtration Rate > 60, Glucose Level 126#H, Calcium Level 7.9L, Total Bilirubin 1.3H, Aspartate Amino Transf (AST/SGOT) 74H , Alanine Aminotransferase (ALT/SGPT) 103H, Alkaline Phosphatase 413H, Total Protein 6.2L, Albumin 2.5L, Globulin 3.7, Albumin/Globulin Ratio 0.7L, Direct Bilirubin 0.3 Height (Feet): 5 Height (Inches): 8.00 Weight (Pounds): 130 Objective WDWN NAD clear breath sounds bilaterally without rhonchi or wheeze [id number] without MRG NABS nontender no HSM no CCE nonfocal Roberth Hernandez MD Feb 24, 2019 08:53
--- NOTE | 2019-02-24 10:00 | NUR ---
NURSE NOTES: Called Dr. Hernandez and informed MD that per bilateral venous duplex scan, patient is noted with acute DVT on right leg. Dr. Hernandez acknowledged and ordered Xarelto 15 mg PO BID. Order entered, noted, and carried out. Will continue to monitor patient.
--- NOTE | 2019-02-24 10:06 | General Progress Note ---
Assessment/Plan Assessment/Plan: Assessment - Severe microcytic anemia - widely metastatic pancreatic cancer - cancer related abd pain - tumor cachexia - elevated Trop Recommendations - supportive care - check Fe panel - IV Fe - PPI - Oncology f/u - EGD if cleared by cardiology Thank you Afsaneh Hollingsworth MD Subjective Allergies: Coded Allergies: No Known Allergies (Unverified , 08/14/14) Objective Last 24 Hour Vital Signs Date Time Temp Pulse Resp B/P (MAP) Pulse Ox O2 Delivery O2 Flow Rate FiO2 02/24/19 08:00 2.0 02/24/19 08:00 Nasal Cannula 2.0 02/24/19 06:00 111/58 02/24/19 04:00 Nasal Cannula 2.0 02/24/19 04:00 78 02/24/19 04:00 2.0 02/24/19 02:05 97.4 02/24/19 00:38 Room Air 2.0 02/24/19 00:00 111/58 02/23/19 23:30 74 02/23/19 23:00 97.4 80 18 113/62 100 Room Air 02/23/19 22:00 97.4 80 18 113/62 100 Room Air 02/23/19 22:00 97.4 74 18 02/23/19 20:30 97.0 80 14 02/23/19 20:30 97.0 80 14 100/58 100 Room Air 02/23/19 20:15 97.1 83 16 106/55 100 Room Air 02/23/19 20:15 97.1 83 16 02/23/19 18:00 95 19 Room Air 02/23/19 18:00 97.5 95 19 112/66 100 Room Air 02/23/19 17:47 97.5 107 16 103/59 (74) 98 Room Air Intake and Output 02/23/19 02/24/19 18:59 06:59 Intake Total 0 ml Output Total 400 ml Balance 0 ml -400 ml Intake Oral 0 ml Output Urine Total 400 ml # Voids 1 Laboratory Tests 02/23/19 18:20: White Blood Count 10.2, Red Blood Count 1.91L, Hemoglobin 4.0*L, Hematocrit 13.8L, Mean Corpuscular Volume 72L, Mean Corpuscular Hemoglobin 20.7L, Mean Corpuscular Hemoglobin Concent 28.7L, Red Cell Distribution Width 18.8H, Platelet Count 199, Mean Platelet Volume 6.2L, Neutrophils (%) (Auto) , Lymphocytes (%) (Auto) , Monocytes (%) (Auto) , Eosinophils (%) (Auto) , Basophils (%) (Auto) , Differential Total Cells Counted 100, Neutrophils % ( Manual) 86H, Lymphocytes % (Manual) 7L, Monocytes % (Manual) 6, Eosinophils % ( Manual) 0, Basophils % (Manual) 0, Band Neutrophils 1, Nucleated Red Blood Cells 3, Platelet Estimate Adequate, Platelet Morphology Normal, Polychromasia 1 +, Hypochromasia 4+, Anisocytosis 3+, Microcytosis 2+, Prothrombin Time 12.7H, Prothromb Time International Ratio 1.2H, Activated Partial Thromboplast Time 22L , Sodium Level 134L, Potassium Level 3.9, Chloride Level 101, Carbon Dioxide Level 22, Anion Gap 11, Blood Urea Nitrogen 23H, Creatinine 0.7, Estimat Glomerular Filtration Rate > 60, Glucose Level 256H, Calcium Level 8.2L, Total Bilirubin 0.5, Aspartate Amino Transf (AST/SGOT) 78H, Alanine Aminotransferase ( ALT/SGPT) 104H, Alkaline Phosphatase 433H, Troponin I 0.067H, Total Protein 6.2L , Albumin 2.5L, Globulin 3.7, Albumin/Globulin Ratio 0.7L, Lipase 39L 02/23/19 19:00: White Blood Count 9.2, Red Blood Count 1.63L, Hemoglobin 3.4*L, Hematocrit 11.9L , Mean Corpuscular Volume 73L, Mean Corpuscular Hemoglobin 20.8L, Mean Corpuscular Hemoglobin Concent 28.5L, Red Cell Distribution Width 18.7H, Platelet Count 165, Mean Platelet Volume 6.3L, Neutrophils (%) (Auto) , Lymphocytes (%) (Auto) , Monocytes (%) (Auto) , Eosinophils (%) (Auto) , Basophils (%) (Auto) , Differential Total Cells Counted 100, Neutrophils % ( Manual) 84H, Lymphocytes % (Manual) 11L, Monocytes % (Manual) 5, Eosinophils % ( Manual) 0, Basophils % (Manual) 0, Band Neutrophils 0, Nucleated Red Blood Cells 2, Platelet Estimate Adequate, Platelet Morphology Normal, Polychromasia 1 +, Hypochromasia 4+, Anisocytosis 3+, Microcytosis 2+ 02/24/19 04:25: White Blood Count 11.2H, Red Blood Count 3.43L, Hemoglobin 8.7#L, Hematocrit 26.5#L, Mean Corpuscular Volume 77L, Mean Corpuscular Hemoglobin 25.3L, Mean Corpuscular Hemoglobin Concent 32.8, Red Cell Distribution Width 15.9H, Platelet Count 133L, Mean Platelet Volume 7.4, Neutrophils (%) (Auto) 77.4H, Lymphocytes (%) (Auto) 14.4L, Monocytes (%) (Auto) 6.8, Eosinophils (%) (Auto) 0.7, Basophils (%) (Auto) 0.7, Sodium Level 135L, Potassium Level 3.9, Chloride Level 103, Carbon Dioxide Level 27, Anion Gap 5, Blood Urea Nitrogen 17, Creatinine 0.6, Estimat Glomerular Filtration Rate > 60, Glucose Level 126#H, Calcium Level 7.9L, Total Bilirubin 1.3H, Aspartate Amino Transf (AST/SGOT) 74H , Alanine Aminotransferase (ALT/SGPT) 103H, Alkaline Phosphatase 413H, Total Protein 6.2L, Albumin 2.5L, Globulin 3.7, Albumin/Globulin Ratio 0.7L, Direct Bilirubin 0.3 Height (Feet): 5 Height (Inches): 8.00 Weight (Pounds): 130 Afsaneh Hollingsworth MD Feb 24, 2019 10:06
--- NOTE | 2019-02-24 10:24 | NUR ---
*-* NO INSURANCE INFORMATION IN THE BAR UNABLE TO SEND CLINICALS OR REVIEWS *-*
[2019-02-24] MEDS ORDERED: Omnipaue 350mg/ml 100ml vial INJ PRN (11:45)
[2019-02-24 12:00] VITALS: BP 106/66
[2019-02-24] MEDS: D5 1/2NS 1,000 ML IV SCH ×2 (12:10→21:53)
--- NOTE | 2019-02-24 14:57 | NUR ---
CASE MANAGEMENT:REVIEW 58YR OLD MALE BIBA FROM HOME CC: GENERALIZED WEAKNESS PMH: PANCREATIC CANCER SI: SEVERE ANEMIA. ELEVATED TROPONIN 97.6 107 16 103/59 98% ON RA HGB-3.4/11.9 IS: 1L NS BOLUS IV MORPHINE CT ABD/PELVIS :TO STEP DOWN UNIT IS: TRANSFUSE 3 UNITS PRBC'S INTERQUAL CRITERIA MET
--- NOTE | 2019-02-24 15:30 | Consultation ---
DATE OF CONSULTATION: 02/23/2019 GASTROENTEROLOGY CONSULTATION CONSULTING PHYSICIAN: Afsaneh Hollingsworth M.D. CHIEF COMPLAINT: I was asked to see this patient by Dr. Roberth Hernandez for evaluation of anemia. HISTORY OF PRESENT ILLNESS: The patient is a debilitated 58-year-old man, who comes in because of chest palpitations and symptomatic anemia. The patient has had a history of pancreatic cancer, which was apparently diagnosed about few months ago. He has had abdominal pain for about a year or so and when he was diagnosed with pancreatic cancer, he underwent the surgery, which appears to be resection type of surgery based on CT scan appearance. However, the CT scan also showed widely metastatic disease. He has not had gastrointestinal bleeding and he denies any melena or hematochezia. He said he had an endoscopy and a colonoscopy about 3 years ago and the results were unremarkable. He does complain of significant abdominal pain and also anorexia. He has no diarrhea. PAST MEDICAL HISTORY: History of metastatic pancreatic cancer, hypertension. PAST SURGICAL HISTORY: Status post recent pancreas cancer resection surgery. FAMILY HISTORY: Noncontributory. SOCIAL HISTORY: The patient does not smoke or drink alcohol. ALLERGIES: None. MEDICATIONS: See the chart list for details. PHYSICAL EXAMINATION: GENERAL: Pleasant, thin, man, seen in his room. HEENT: Normocephalic, atraumatic. Sclerae anicteric. Oropharynx clear. NECK: Supple. CHEST: Clear to auscultation. CARDIOVASCULAR: Revealed a regular rate. ABDOMEN: Soft with right upper quadrant abdominal tenderness. EXTREMITIES: Revealed no edema. Laboratory data and CT scan were noted. ASSESSMENT: This patient presents with widely metastatic pancreatic cancer, which confirms a very poor prognosis. At the same time, he has presented with symptomatic anemia and has required several blood transfusions. He is better now. There is no evidence of acute of gastrointestinal bleeding and benefits of endoscopy in the face of mildly elevated troponin and also widely metastatic cancer will have to be evaluated. However, an upper endoscopy can be done, if cleared from a cardiac standpoint, to rule out any significant and high-risk GI lesions. The colonoscopy can be deferred to outpatient should the patient's overall health permits. RECOMMENDATIONS: 1. Continue current management. 2. Proton pump inhibitor. 3. Possible endoscopy of the upper GI tract. 4. Cardiology clearance and evaluation. 5. Oncology followup. Thank you for asking me to participate in the care of this patient. Afsaneh Hollingsworth M.D. DR: FAWN JOB#: [id number] CC: LION
--- NOTE | 2019-02-24 15:46 | Diagnostic Imaging Report ---
Indication: Chest pain Technique: Continuous helical transaxial imaging of the chest was obtained from the thoracic inlet to the upper abdomen during rapid intravenous contrast administration. Arterial phase of enhancement obtained. Coronal 2-D reformats were also obtained and maximum intensity projection images in multiple planes. Study obtained in a Siemens sensation [address] Automatic Exposure Control was utilized. Total Dose length Product (DLP): 496.[address] Dose Index Volume (CTDIvol): 32.9 mGy Comparison: None Findings: The pulmonary artery is well opacified. There are filling defects present within the right pulmonary artery trunk extending into several of the lobar and segmental branches especially in the lower lobe. There are filling defects as well at the segmental branch level of the left lower lobe. There is some filling defect involving segmental branches of the right upper lobe. Findings consistent with pulmonary emboli. There is no CT evidence of right heart strain on this examination. The lungs are clear. No pulmonary infarcts identified. No infiltrate seen. Minimal left posterior basal atelectasis noted. There are multiple hypodensities within the liver again demonstrated. This was described on recent CT of the abdomen from 02/23/2019. Pneumobilia also noted. The aorta is unremarkable. There is no adenopathy in the chest identified. No pleural effusion or other abnormal fluid collections are identified. IMPRESSION: Evidence of multisegment bilateral pulmonary emboli. Trace left basal atelectasis. Sternotomy Evidence of liver metastasis. Pneumobilia. Critical value communication. Findings were discussed via telephone with nurse on 2 W. at the time of this dictation 3:30 p.m. 02/24/2019 . The referring physician will be contacted MATT. The CT scanner at [facility] is accredited by the [employer] and the scans are performed using dose optimization techniques as appropriate to a performed exam including Automatic Exposure control.
--- NOTE | 2019-02-24 15:52 | NUR ---
NURSE NOTES: Called and informed Dr. Hernandez of results of CTA lung with contrast: per Dr. Bradley patient has bilateral pulmonary embolism. No shortness of breath, denies chest pain at this time. Dr. Motta acknowledged and states order of Xarelto 15 mg PO BID for acute right leg DVT and bilateral pulmonary embolism is okay. Noted. Also called and informed ordering physician, Dr. Velasquez, of results and treatment ordered per Dr. Hernandez. Dr. Velasquez acknowledged and gave no new orders a this time. Charge nurse made aware. Will continue to monitor patient.
[2019-02-24 16:00] VITALS: BP 106/62
--- NOTE | 2019-02-24 16:30 | Consultation ---
DATE OF CONSULTATION: 02/24/2019 CARDIOLOGY CONSULTATION CONSULTING PHYSICIAN: Jimbo Velasquez M.D. REFERRING PHYSICIAN: Roberth Hernandez M.D. REASON: Elevated troponin level. HISTORY OF PRESENT ILLNESS: This 58-year-old male with a history of pancreatic cancer, status post surgery several weeks ago that was apparently unsuccessful due to advanced disease. The patient is to start chemo and/or radiation therapy soon who presented with sharp abdominal pain, but no chest discomfort. He was noted to have an elevated troponin level prompting this consultation. Subsequently, a venous duplex scan was positive for DVT. PAST MEDICAL HISTORY: Includes hypertension. ALLERGIES: None. MEDICATIONS: Reviewed and reconciled. SOCIAL HISTORY: Negative for smoking, alcohol, or substance abuse. REVIEW OF SYSTEMS: Otherwise unremarkable. PHYSICAL EXAMINATION: VITAL SIGNS: Blood pressure 111/58, pulse 78, respirations 20, afebrile. LUNGS: Clear. CARDIAC: Regular. Normal S1, S2. ABDOMEN: Mildly tender. EXTREMITIES: No edema. No calf tenderness noted. Temporal wasting is seen. LABORATORY AND DIAGNOSTIC DATA: Troponin 0.067. EKG with sinus rhythm and nonspecific ST change. IMPRESSION: 1. Extensive DVT. 2. Troponin elevation, likely due to severe anemia on presentation with acute myocardial ischemia and possibly a pulmonary embolic event in the setting of widely metastatic pancreatic cancer. RECOMMENDATIONS: 1. Maintain hemoglobin above 7 g. 2. Full anticoagulation. 3. CT angiogram of the chest to assess for pulmonary emboli. 4. Follow up troponin level. 5. Conservative management. Jimbo Velasquez M.D. DR: BARABRA JOB#: [id number] CC:
[2019-02-24] MEDS: Xarelto 10mg tab ORAL SCH (17:30)
--- NOTE | 2019-02-24 19:14 | Cardiology Report ---
APPROVED REPORT EKG Measurement Heart [id number] Normal sinus rhythm Inferior infarct, age undetermined Abnormal ECG
--- NOTE | 2019-02-24 19:30 | NUR ---
NURSE NOTES: Received report from Maria Isabel SUERO. Patient in bed awake,alert able to make needs known to staff. Denies any pain or discomfort.No s/s of acute distress noted. No complain of chest pain. no abdominal pain. No SOB oxygen saturation room air 99%. SR on ekg monitor tech HR 82. Right AC #20 intact. Instructed patient to use call light for assistance. with bedside commode and urinal at bedside. Bed alarm on. bed locked and in low position.
[2019-02-24 20:00] VITALS: BP 102/62
[2019-02-25] VITALS (8 sets, daily range): BP systolic 105–139; BP diastolic 65–83
[2019-02-25] MEDS: HydrALAZINE 25mg tab ORAL SCH ×4 (00:58→17:20)
[2019-02-25] MEDS: HYDROmorphone 1mg/ml Carpuject IVP PRN ×5 (00:58→22:59)
--- NOTE | 2019-02-25 07:00 | NUR ---
NURSE NOTES: received patient report from leslie phan. patient is on bed awake. not in acute distress, bed is low and locked for safety. will follow plan of care.
[2019-02-25] MEDS: D5 1/2NS 1,000 ML IV SCH ×2 (07:18→17:21)
--- NOTE | 2019-02-25 07:28 | NUR ---
HAND-OFF: Report given to Osmel SUERO. patient complained of 7/10 abdominal pain repositioned patient, food offered, and talk therapy provided not effective Dilaudid given for pain. will endorsed to monitor nad reassess patient pain.Bilateral lower extremities elevated with pillow. endorsed to am nurse to follow with MD if patient can have appetite stimulant per family. call light within easy reach.
[2019-02-25] MEDS: Carvedilol 6.25mg Tab ORAL SCH (08:26)
[2019-02-25] MEDS: Xarelto 10mg tab ORAL SCH ×2 (08:26→17:20)
[2019-02-25] MEDS: Pantoprazole Inj IVP SCH ×2 (08:26→20:20)
--- NOTE | 2019-02-25 09:07 | General Progress Note ---
Assessment/Plan Assessment/Plan: Impression: Severe Anemia generalized weakness Metastatic Pancreatic cancer Elevated troponin, likely demand related Hypertension PE an DVT Plan: Transfused Xarelto with caution may need filter Protonix GI/Cardiology Consults TAX PROCESSOR medications PPX O2 PRN heme to see as well impression, plan, and exam edited and reviewed in detail care discussed with RN Subjective Allergies: Coded Allergies: No Known Allergies (Unverified , 08/14/14) Subjective improved HH PE and DVT + Objective Last 24 Hour Vital Signs Date Time Temp Pulse Resp B/P (MAP) Pulse Ox O2 Delivery O2 Flow Rate FiO2 02/25/19 08:26 86 114/65 02/25/19 08:00 98.6 86 21 114/65 (81) 100 02/25/19 06:00 105/83 02/25/19 04:00 Room Air 02/25/19 04:00 97.9 79 20 105/83 (90) 100 02/25/19 04:00 75 02/25/19 01:28 97.9 02/25/19 00:58 139/83 02/25/19 00:00 97.9 82 20 139/83 (101) 100 02/25/19 00:00 Room Air 02/25/19 00:00 84 02/24/19 21:00 82 102/62 02/24/19 20:00 70 02/24/19 20:00 97.9 82 20 102/62 (75) 100 02/24/19 20:00 Room Air 02/24/19 16:00 97.9 64 20 106/62 (77) 100 02/24/19 16:00 64 02/24/19 16:00 2.0 02/24/19 16:00 Nasal Cannula 2.0 02/24/19 12:00 98.4 74 20 106/66 (79) 100 02/24/19 12:00 73 02/24/19 12:00 Nasal Cannula 2.0 02/24/19 12:00 2.0 Intake and Output 02/24/19 02/25/19 18:59 06:59 Intake Total 500 ml 1297 ml Output Total 500 ml Balance 500 ml 797 ml Intake Oral 500 ml 100 ml IV Total 1197 ml Output Urine Total 500 ml # Voids 2 2 # Bowel Movements 1 Laboratory Tests 02/24/19 14:30: Stool Occult Blood [Pending] Height (Feet): 5 Height (Inches): 8.00 Weight (Pounds): 130 Objective WDWN NAD clear breath sounds bilaterally without rhonchi or wheeze [id number] without MRG NABS nontender no HSM no CCE nonfocal Roberth Hernandez MD Feb 25, 2019 09:07
--- NOTE | 2019-02-25 11:55 | NUR ---
*-* INSURANCE *-* ALL AVAILABLE CLINICALS AND REVIEWS HAVE BEEN FAXED TO: MYKE CADENA:SANDRA F: [phone] REF# [id number]
--- NOTE | 2019-02-25 12:26 | NUR ---
CASE MANAGEMENT:REVIEW 02/25/19 SI: SEVERE ANEMIA.ELEVATED TROPONIN BILATERAL PULMONARY EMBOLI AND BLE DVT'S METASTATIC PANCREATIC CANCER 98.6 86 21 114/65 100% ON RA IS: XARELTO PO BID IVF@100/HR IV PROTONIX Q12 COREG PO Q12 HYDRALAZINE PO Q6HRS : STEP DOWN UNIT DCP: FROM HOME PLAN: UPON DISCHARGE PATIENT NEEDS TO F/U WITH PCP DR PETERS T: [phone] ON 03/06/19 @ 99
--- NOTE | 2019-02-25 13:43 | NUR ---
*-* INSURANCE *-* ALL CLINICALS AND REVIEWS HAVE BEEN FAXED TO: MYKE CADENA: SANDRA F: [phone]
--- NOTE | 2019-02-25 15:30 | Consultation ---
History of Present Illness General Chief Complaint: Generalized Weakness Present Illness Allergies: Coded Allergies: No Known Allergies (Unverified , 08/14/14) Medication History Scheduled Benazepril Hcl* (Benazepril Hcl*), 20 MG ORAL EVERY 12 HOURS, (Reported) Carvedilol* (Carvedilol*), 6.25 MG ORAL EVERY 12 HOURS, (Reported) Clopidogrel* (Clopidogrel*), 75 MG ORAL DAILY, (Reported) Cyclobenzaprine Hcl* (Flexeril*), 10 MG ORAL BID Fluticasone Propionate* (Fluticasone Propionate*), 1 SPRAY NASAL DAILY, ( Reported) Lisinopril (Lisinopril*), 5 MG ORAL DAILY, (Reported) Pseudoephedrine Hcl* (Sudafed*), 30 MG PO Q6H, (Reported) Scheduled PRN Hydrocodone/Acetaminophen (Hydrocodon-Acetaminophn 10-325), 1 TAB ORAL Q4H PRN for For Pain, (Reported) Ibuprofen* (Motrin*), 600 MG ORAL Q8H PRN for For Pain Patient History Healthcare decision maker Resuscitation status Advanced Directive on File Physical Exam Last 24 Hour Vital Signs Date Time Temp Pulse Resp B/P (MAP) Pulse Ox O2 Delivery O2 Flow Rate FiO2 02/25/19 12:00 Room Air 02/25/19 12:00 109/68 02/25/19 12:00 97.5 71 24 109/68 (82) 98 02/25/19 11:41 70 02/25/19 08:26 86 114/65 02/25/19 08:00 98.6 86 21 114/65 (81) 100 02/25/19 08:00 72 02/25/19 08:00 Room Air 02/25/19 06:00 105/83 02/25/19 04:00 Room Air 02/25/19 04:00 97.9 79 20 105/83 (90) 100 02/25/19 04:00 75 02/25/19 01:28 97.9 02/25/19 00:58 139/83 02/25/19 00:00 97.9 82 20 139/83 (101) 100 02/25/19 00:00 Room Air 02/25/19 00:00 84 02/24/19 21:00 82 102/62 02/24/19 20:00 70 02/24/19 20:00 97.9 82 20 102/62 (75) 100 02/24/19 20:00 Room Air 02/24/19 16:00 97.9 64 20 106/62 (77) 100 02/24/19 16:00 64 02/24/19 16:00 2.0 02/24/19 16:00 Nasal Cannula 2.0 Intake and Output 02/24/19 02/25/19 19:00 07:00 Intake Total 600 ml 1297 ml Output Total 500 ml Balance 600 ml 797 ml Intake Oral 500 ml 100 ml IV Total 100 ml 1197 ml Output Urine Total 500 ml # Voids 2 2 # Bowel Movements 1 Height (Feet): 5 Height (Inches): 8.00 Weight (Pounds): 130 Medications Current Medications Medications (Trade) Dose Ordered Sig/Mark Route PRN Reason Start Time Stop Time Status Last Admin Dose Admin Acetaminophen (Tylenol) 650 mg Q6H PRN ORAL Mild Pain/Temp > 100.5 02/23/19 23:45 03/25/19 23:44 Carvedilol (Coreg) 6.25 mg EVERY 12 HOURS ORAL 02/24/19 09:00 03/26/19 08:59 Dextrose/Sodium Chloride 1,000 ml @ 100 mls/hr Q10H IV 02/24/19 12:00 03/26/19 11:59 02/25/19 07:18 Hydralazine HCl (Apresoline) 25 mg Q6HR ORAL 02/24/19 00:00 03/26/19 00:00 02/25/19 00:58 Hydromorphone HCl (Dilaudid) 0.5 mg Q3HR PRN IVP For Pain 02/23/19 23:45 03/02/19 23:44 02/25/19 07:22 Iohexol (OMNIPAQUE-300 100ml) 100 ml NOW PRN INJ Radiology Procedure 02/23/19 18:15 02/25/19 18:06 Iohexol (Omnipaque) 100 mg NOW PRN INJ Radiology Procedure 02/24/19 11:45 02/26/19 11:38 Ondansetron HCl (Zofran) 4 mg Q6H PRN IVP Nausea & Vomiting 02/23/19 23:45 03/25/19 23:44 Pantoprazole (Protonix) 40 mg EVERY 12 HOURS IVP 02/24/19 09:00 03/26/19 08:59 02/25/19 08:26 Rivaroxaban (Xarelto) 15 mg BID ORAL 02/24/19 18:00 03/26/19 17:59 02/25/19 08:26 Assessment/Plan Assessment/Plan: Oncology Consultation Chief Complaint: Generalized Weakness REQ MD: Driss Hernandez DOS: 02/25/19 ID 58-year-old male presents ED for evaluation. Brought in by EMS from home. Increased weakness. Started a few days ago. States that he has been diagnosed with pancreatic cancer. Had surgery few weeks ago at [facility] where they told him the cancer is too far progressed. Is currently scheduled for chemo or radiation. Patient states that since the surgery he had a fall and has been having increased pain in his abdomen. 10 out of 10, sharp, nonradiating. Denies fevers chills. States he has been having palpitations as well. Denies chest pain. Denies shortness of breath. No other aggravating relieving factors. Denies any other associated symptoms. CT scan here had multiple liver mets, have ordered tumor makers, needs to return to [facility] for further eval and treatment, noted to have dvt and PE as well. Has been started on xarelto and does not require further biospy given definitive diagnosis. Allergies: No Known Allergies (Unverified , 08/14/14) Patient History Past Medical History: other - cancer Past Surgical History: none Pertinent Family History: none Social History: Denies: smoking, alcohol use, drug use Reviewed Nursing Documentation: PMH: Agreed; PSxH: Agreed Past Medical History: No History, Except For Hx Cardiac Problems: Yes Hx Hypertension: Yes Hx Cancer: Yes - liver cancer Review of Systems All Other Systems: negative except mentioned in HPI Physical Exam General Appearance: alert, cachetic Head: normocephalic, at Eyes: bilateral eye normal inspection, PERRL Resp: chest non-tender, lungs clear, normal breath sounds, speaking full sentences CV: regular rate, rhythm, no edema GI: normal bowel sounds, soft, non-distended, no guarding, no rebound, ++ surgical scar abdomen. : normal inspection, no CVA tenderness MSK: back normal, normal range of motion, nt Neuro: alert, motor strength/tone normal, oriented x3 Lymphatic: no adenopathy Labs: reviewed Imaging: reviewed Assessment and Recs # Pancreatic cancer with liver mets, is not amenable to surgical resection --> in past attempted to do resection but was unsuccesful --> has at this time multiple liver metastasis --> have ordered several tumor markers --> imaging has been reviewed --> recommend outpatient treatment --> is likely cause of anemia # DVt in the setting of PE, with a hypercoagulable disorder from malignancy --> do recommend either anticoagulation, in this setting or ivcF --> at this time will continue the xarelto that has been started --> if bleeds, obtain ivcF # Anemia of iron deficiency, unspecified rule out gi bleed --> obtain a anemi panel, has been ordered --> will/have begun on iv iron and continue x 5 doses if ferritin <50 --> review if occult blood is + --> gi recs noted --> hgb goal is >7, transfuse as needed --> hgb trend 3.4->8.7 --> no evidence of hemolysis noted # Thrombocytopenia may be due to early dic --> plt trend 199->165-->134 # Elevated troponin --> due to demand ischemia # Episode of generalized weakness --> likely due to above The timing of this note does not necessarily reflect the time of the patient was seen. Greatly appreciate consultation. Keegan Morillo MD Feb 25, 2019 15:30
[2019-02-25] MEDS ORDERED: Milk of Magnesia 30ml Ud ORAL PRN (17:45)
--- NOTE | 2019-02-25 19:15 | NUR ---
NURSE NOTES: Received report from PIO Nicole, pt. in bed awake, A/O x's4- able to make needs known, no signs or symptoms of acute cardiac or respiratory distress noted, bed alarm on, side rails up x's3 and safety brakes engaged, call light within easy reach and bed in low position, pt. appears to be sating well on RA- no distress noted, at bedside, urinal at bedside and within easy reach, comfort measures provided, Rt. AC 20G IV intact and patent, running D5 1/2NS 100cc/hr. Safety measures continued, will continue with plan of care.
[2019-02-25 19:18] LABS: % IRON SATURATION 4 % (15-50); FERRITIN 29 NG/ML (8-388); IRON 13 ug/dL (50-175); LACTATE DEHYDROGENASE 348 U/L (81-234); TOTAL IRON BINDING CAPACITY 322 ug/dL (250-450)
--- NOTE | 2019-02-25 19:19 | NUR ---
HAND-OFF: Report given to king phan.
[2019-02-25] MEDS ORDERED: Omnipaue 350mg/ml 100ml vial INJ PRN (21:15)
[2019-02-25] MEDS ORDERED: D5 1/2NS 1,000 ML IV SCH (21:15)
--- NOTE | 2019-02-25 21:15 | NUR ---
NURSE NOTES: Received pt from SDU via bed with family members at bedside. Pt transferred to 211-1 without any incident. Received report from PIO Bello. Pt is A/Ox4. Verbena pt to room and unit. phototypesetting equipment monitor is in placed, IV site intact, asymptomatic, and patent; currently running D5 1/2 NS @ 100cc/hr. Belongings list checked. Orders transferred and acknowledged. Bed is in the lowest position and locked. Call light and bedside table within reach. No signs/symptoms of acute distress noted at this time. Will continue plan of care.
--- NOTE | 2019-02-25 21:25 | NUR ---
HAND-OFF: Report given to PIO Shipman- pt. transferred to room 211-1- pt. remains stable and no signs of distress noted- also notified pharmacy Sandi - pt. did not get Coreg at 2100- she will put back into eMAR. Nurse aware to f/u.
[2019-02-25] MEDS ORDERED: Carvedilol 6.25mg Tab ORAL SCH (21:30)
--- NOTE | 2019-02-25 22:51 | General Progress Note ---
Assessment/Plan Assessment/Plan: Assessment - anemia - improved with transfusion - Iron deficiency - metastatic pancreatic cancer - abd pain - tumor cachexia - elevated Trop - DVT / PE - OB (+) Recommendations - supportive care - monitor CBC - push po - IV Fe - PPI - Oncology f/u - EGD if shows active bleeding Subjective Allergies: Coded Allergies: No Known Allergies (Unverified , 08/14/14) Subjective Above noted c/o abd pain c/o LLE swelling (+) BM - brown on anticoagulation for DVT/PE Objective Last 24 Hour Vital Signs Date Time Temp Pulse Resp B/P (MAP) Pulse Ox O2 Delivery O2 Flow Rate FiO2 02/25/19 21:54 79 135/77 02/25/19 21:15 97.9 79 19 135/77 (96) 100 02/25/19 20:20 97.5 02/25/19 20:02 75 02/25/19 20:00 97.2 81 20 136/66 (89) 100 02/25/19 20:00 Room Air 02/25/19 19:50 81 133/66 (88) 02/25/19 17:20 118/69 02/25/19 16:35 83 02/25/19 16:00 Room Air 02/25/19 16:00 99.1 83 21 118/69 (85) 100 02/25/19 12:00 Room Air 02/25/19 12:00 109/68 02/25/19 12:00 97.5 71 24 109/68 (82) 98 02/25/19 11:41 70 02/25/19 08:26 86 114/65 02/25/19 08:00 98.6 86 21 114/65 (81) 100 02/25/19 08:00 72 02/25/19 08:00 Room Air 02/25/19 06:00 105/83 02/25/19 04:00 Room Air 02/25/19 04:00 97.9 79 20 105/83 (90) 100 02/25/19 04:00 75 02/25/19 00:58 139/83 02/25/19 00:00 97.9 82 20 139/83 (101) 100 02/25/19 00:00 Room Air 02/25/19 00:00 84 Intake and Output 02/24/19 02/25/19 19:00 07:00 Intake Total 600 ml 1297 ml Output Total 500 ml Balance 600 ml 797 ml Intake Oral 500 ml 100 ml IV Total 100 ml 1197 ml Output Urine Total 500 ml # Voids 2 2 # Bowel Movements 1 Laboratory Tests 02/25/19 18:10: Reticulocyte Count 1.8, Iron Level 13L, Total Iron Binding Capacity 322, Percent Iron Saturation 4L, Unsaturated Iron Binding 309, Ferritin 29, Lactate Dehydrogenase 348H, Alpha Fetoprotein [Pending], Carcinoembryonic Antigen [ Pending], CA 19-9 Antigen [Pending], Folate 16.1 Height (Feet): 5 Height (Inches): 8.00 Weight (Pounds): 130 Objective Thin man NCAT supple CTA RR abd soft, (+) TTP no edema Afsaneh Hollingsworth MD Feb 25, 2019 22:51
[2019-02-25] MEDS ORDERED: HydrALAZINE 25mg tab ORAL SCH (23:30)
[2019-02-26] VITALS: BP 131/68
--- NOTE | 2019-02-26 01:15 | Progress Note ---
DATE: 02/25/2019 CARDIOLOGY PROGRESS NOTE SUBJECTIVE: The patient has leg swelling and abdominal pain, but no chest pain or shortness of breath. He is started on anticoagulation for bilateral DVT. He had a CT angiogram ordered by me that was positive for pulmonary emboli. OBJECTIVE: VITAL SIGNS: Blood pressure 135/77, pulse 75, and respirations 19. LUNGS: Clear. CARDIAC: Regular. There is no new murmur. ABDOMEN: Soft, mildly tender. EXTREMITIES: No edema. LABORATORY DATA: Iron panel is noted. IMPRESSION: 1. Metastatic pancreatic carcinoma. 2. DVT and pulmonary emboli. 3. Elevated troponin due to acute pulmonary embolic event and associated cardiac strain. 4. Iron deficiency with anemia. PLAN: 1. Full anticoagulation. 2. Iron supplement. 3. IVC filter to be considered for any active bleeding in the future. 4. Adjust IV fluid hydration. 5. Decrease antihypertensive drugs. 6. Continue beta-johnie for suppression of atrial ectopy, which is at increased risk in the setting of multiple pulmonary emboli. Jimbo Velasquez M.D. DR: SAMEER JOB#: [id number] CC:
[2019-02-26] MEDS: HYDROmorphone 1mg/ml Carpuject IVP PRN ×5 (02:20→20:33)
--- NOTE | 2019-02-26 03:28 | NUR ---
NURSE NOTES: Observed pt asleep in bed. No signs/symptoms of acute distress noted at this time. Will continue plan of care.
[2019-02-26 04:00] VITALS: BP 108/67
[2019-02-26] MEDS ORDERED: HydrALAZINE 25mg tab ORAL SCH (06:00)
--- NOTE | 2019-02-26 07:35 | NUR ---
NURSE NOTES: Report received from PIO Shipman. Pt AOx4. In RA. Denies SOB. IV flushed, SL, site intact. Lower extremity edema noted. Per night RN aware. Breakfast tray provided. Bed on lowest position, side rails upx2, brakes engaged, alarm on. Call light left within easy reach.
[2019-02-26 07:55] LABS: HEMATOCRIT 21.9 % (42.0-52.0); MEAN CORPUSCULAR VOLUME 77 FL (80-99); PLATELET COUNT 113 K/UL (150-450); RED BLOOD COUNT 2.85 M/UL (4.70-6.10); RED CELL DISTRIBUTION WIDTH 17.6 % (11.6-14.8); WHITE BLOOD COUNT 9.1 K/UL (4.8-10.8)
[2019-02-26 08:00] VITALS: BP_SYST 116; BP_SYST 148; BP_DIAS 67; BP_DIAS 89
[2019-02-26 08:21] LABS: ANION GAP 5 mmol/L (5-15); BLOOD UREA NITROGEN 6 mg/dL (7-18); CALCIUM 7.6 MG/DL (8.5-10.1); CARBON DIOXIDE 27 MMOL/L (21-32); CHLORIDE 103 MMOL/L (98-107); CREATININE 0.6 MG/DL (0.55-1.30); POTASSIUM 3.8 MMOL/L (3.5-5.1); SODIUM 135 MMOL/L (136-145)
--- NOTE | 2019-02-26 08:23 | NUR ---
HAND-OFF: Report given to PIO Manuel. Plan of care endorsed.
[2019-02-26] MEDS ORDERED: Xarelto 10mg tab ORAL SCH (09:00)
[2019-02-26] MEDS: Carvedilol 6.25mg Tab ORAL SCH ×2 (09:48→21:01)
[2019-02-26] MEDS: Pantoprazole Inj IVP SCH ×2 (09:48→21:01)
--- NOTE | 2019-02-26 09:54 | NUR ---
CASE MANAGEMENT:REVIEW 02/26/19 SI: SEVERE ANEMIA.ELEVATED TROPONIN BILATERAL PULMONARY EMBOLI AND BLE DVT'S METASTATIC PANCREATIC CANCER 99.2 82 18 108/67 97% ON RA H/H-7.0/21.9 PLT-113 IS: XARELTO PO BID IV VENOFER QHS IVF@100/HR IV PROTONIX Q12 COREG PO Q12 HYDRALAZINE PO Q6HRS : STEP DOWN UNIT DCP: FROM HOME PLAN: UPON DISCHARGE PATIENT NEEDS TO F/U WITH PCP DR PETERS T: [phone] ON 03/06/19 @ 5078
--- NOTE | 2019-02-26 09:57 | NUR ---
DISCHARGE PLANNING PLAN: UPON DISCHARGE PATIENT NEEDS TO F/U WITH PCP DR PETERS T: [phone] ON 03/06/19 @ 7268
--- NOTE | 2019-02-26 10:17 | Diagnostic Imaging Report ---
APPROVED REPORT CPT Code: 88347 Present Symptoms Lower Extremity Pain: RIGHT LEG: Venous imaging reveals acute thrombus in the distal superficial femoral vein to popliteal vein. Imaging also reveals acute thrombus in the posterior tibial vein. Remainder of the deep venous system within normal limits. Greater saphenous vein also within normal limits. LEFT LEG: Imaging reveals acute thrombus in the greater saphenous vein. The tip of the thrombus is seen in the proximal of thigh (junction of the greater saphenous vein and superficial femoral vein). Imaging reveals a patent deep venous system bilaterally. There is no evidence of thrombus within the left common femoral, superficial femoral, popliteal or tibial segments. Doppler indicates normal spontaneous flow within these segments. PIO Weiner was notified of abnormal results at 1110 hours.
[2019-02-26 12:00] VITALS: BP 107/64
[2019-02-26] MEDS ORDERED: Lidocaine 1% Plain 30 ml INJ PRN (13:30)
--- NOTE | 2019-02-26 13:30 | Hematology/Onc Progress Note ---
Assessment/Plan Assessment/Plan Assessment and Recs # Pancreatic cancer with liver mets, is not amenable to surgical resection --> in past attempted to do resection but was unsuccesful --> has at this time multiple liver metastasis --> CEA 119, CA 19.9 111 --> imaging has been reviewed --> recommend outpatient treatment --> is likely cause of anemia # DVt in the setting of PE, with a hypercoagulable disorder from malignancy --> do recommend either anticoagulation, in this setting or ivcF -->his h/h has dropped markedly due to JASON/bleed --> JEEVAN STOP XARELTO --> HAVE ORDERED FOR IVC Filter --> APPRECIATE NAVEEN RECS # Anemia of iron deficiency, unspecified rule out gi bleed --> obtain a anemi panel, has been ordered--> jason noted --> iv iron started --> review if occult blood is + --> gi recs noted --> hgb goal is >7, transfuse as needed --> hgb trend 3.4->8.7-->7 --> no evidence of hemolysis noted # Thrombocytopenia may be due to early dic --> plt trend 199->165-->134 # Elevated troponin --> due to demand ischemia # Episode of generalized weakness --> likely due to above The timing of this note does not necessarily reflect the time of the patient was seen. Greatly appreciate consultation. Subjective Constitutional: Denies: no symptoms, chills, fever, malaise, weakness, other HEENT: Denies: no symptoms, eye pain, blurred vision, tearing, double vision, ear pain, ear discharge, nose pain, nose congestion, throat pain, throat swelling, mouth pain, mouth swelling, other Respiratory: Denies: no symptoms, cough, shortness of breath, SOB with excertion, SOB at rest, sputum, wheezing, other Gastrointestinal/Abdominal: Denies: no symptoms, abdomen distended, abdominal pain, black stools, tarry stools, blood in stool, constipated, diarrhea, difficulty swallowing, nausea, poor appetite, poor fluid intake, rectal bleeding , vomiting, other Genitourinary: Denies: no symptoms, burning, discharge, frequency, flank pain, hematuria, incontinence, pain, urgency, other Neurologic/Psychiatric: Denies: no symptoms, anxiety, depressed, emotional problems, headache, numbness, paresthesia, pre-existing deficit, seizure, tingling, tremors, weakness, other Hematologic/Lymphatic: Denies: no symptoms, anemia, easy bleeding, easy bruising, adenopathy, other Allergies: Coded Allergies: No Known Allergies (Unverified , 08/14/14) Subjective 02/26: no events, hgb remains low, dw Kaleb, have ordered ivc filter, stopped xarelto, shyann Hernandez Objective Objective Current Medications Medications (Trade) Dose Ordered Sig/Mark Route PRN Reason Start Time Stop Time Status Last Admin Dose Admin Acetaminophen (Tylenol) 650 mg Q6H PRN ORAL Mild Pain/Temp > 100.5 02/25/19 22:45 03/25/19 22:44 Carvedilol (Coreg) 12.5 mg EVERY 12 HOURS ORAL 02/26/19 09:00 03/28/19 08:59 02/26/19 09:48 Hydromorphone HCl (Dilaudid) 0.5 mg Q3HR PRN IVP For Pain 02/25/19 23:00 03/04/19 22:59 02/26/19 10:06 Iron Sucrose 100 mg/Sodium Chloride 60 ml @ 240 mls/hr BEDTIME IV 02/26/19 21:00 03/02/19 21:14 Magnesium Hydroxide (Mom) 30 ml DAILYPRN PRN ORAL Constipation 02/26/19 17:45 03/27/19 17:44 Ondansetron HCl (Zofran) 4 mg Q6H PRN IVP Nausea & Vomiting 02/25/19 23:45 03/25/19 23:44 Pantoprazole (Protonix) 40 mg EVERY 12 HOURS IVP 02/26/19 09:00 03/26/19 08:59 02/26/19 09:48 Rivaroxaban (Xarelto) 15 mg BID ORAL 02/26/19 18:00 03/26/19 17:59 Last 24 Hour Vital Signs Date Time Temp Pulse Resp B/P (MAP) Pulse Ox O2 Delivery O2 Flow Rate FiO2 02/26/19 12:00 74 02/26/19 12:00 98.4 75 16 107/64 (78) 97 02/26/19 10:36 99.2 02/26/19 09:48 76 116/67 02/26/19 09:00 Room Air 02/26/19 08:00 97.1 100 18 116/67 (83) 95 02/26/19 04:00 82 02/26/19 04:00 99.2 80 18 108/67 (81) 97 02/26/19 00:00 98.1 83 19 131/68 (89) 99 02/26/19 00:00 83 02/25/19 23:57 131/68 02/25/19 21:54 79 135/77 02/25/19 21:15 97.9 79 19 135/77 (96) 100 02/25/19 20:20 97.5 02/25/19 20:02 75 02/25/19 20:00 97.2 81 20 136/66 (89) 100 02/25/19 20:00 Room Air 02/25/19 19:50 81 133/66 (88) 02/25/19 17:20 118/69 02/25/19 16:35 83 02/25/19 16:00 Room Air 02/25/19 16:00 99.1 83 21 118/69 (85) 100 02/25/19 12:00 Room Air 02/25/19 12:00 109/68 02/25/19 12:00 97.5 71 24 109/68 (82) 98 02/25/19 11:41 70 02/25/19 08:26 86 114/65 02/25/19 08:00 98.6 86 21 114/65 (81) 100 02/25/19 08:00 72 02/25/19 08:00 Room Air 02/25/19 06:00 105/83 02/25/19 04:00 Room Air 02/25/19 04:00 97.9 79 20 105/83 (90) 100 02/25/19 04:00 75 02/25/19 00:58 139/83 02/25/19 00:00 97.9 82 20 139/83 (101) 100 02/25/19 00:00 Room Air 02/25/19 00:00 84 02/24/19 21:00 82 102/62 02/24/19 20:00 70 02/24/19 20:00 97.9 82 20 102/62 (75) 100 02/24/19 20:00 Room Air 02/24/19 16:00 97.9 64 20 106/62 (77) 100 02/24/19 16:00 64 02/24/19 16:00 2.0 02/24/19 16:00 Nasal Cannula 2.0 Intake and Output 02/25/19 02/26/19 18:59 06:59 Intake Total 1278 ml 650 ml Balance 1278 ml 650 ml Intake Oral 450 ml 350 ml IV Total 828 ml 300 ml # Voids 2 2 # Bowel Movements 3 1 Labs Test 02/23/19 18:20 02/23/19 19:00 02/24/19 04:25 02/24/19 14:30 White Blood Count 10.2 K/UL (4.8-10.8) 9.2 K/UL (4.8-10.8) 11.2 K/UL (4.8-10.8) Red Blood Count 1.91 M/UL (4.70-6.10) 1.63 M/UL (4.70-6.10) 3.43 M/UL (4.70-6.10) Hemoglobin 4.0 G/DL (14.2-18.0) 3.4 G/DL (14.2-18.0) 8.7 G/DL (14.2-18.0) Hematocrit 13.8 % (42.0-52.0) 11.9 % (42.0-52.0) 26.5 % (42.0-52.0) Mean Corpuscular Volume 72 FL (80-99) 73 FL (80-99) 77 FL (80-99) Mean Corpuscular Hemoglobin 20.7 PG (27.0-31.0) 20.8 PG (27.0-31.0) 25.3 PG (27.0-31.0) Mean Corpuscular Hemoglobin Concent 28.7 G/DL (32.0-36.0) 28.5 G/DL (32.0-36.0) 32.8 G/DL (32.0-36.0) Red Cell Distribution Width 18.8 % (11.6-14.8) 18.7 % (11.6-14.8) 15.9 % (11.6-14.8) Platelet Count 199 K/UL (150-450) 165 K/UL (150-450) 133 K/UL (150-450) Mean Platelet Volume 6.2 FL (6.5-10.1) 6.3 FL (6.5-10.1) 7.4 FL (6.5-10.1) Neutrophils (%) (Auto) % (45.0-75.0) % (45.0-75.0) 77.4 % (45.0-75.0) Lymphocytes (%) (Auto) % (20.0-45.0) % (20.0-45.0) 14.4 % (20.0-45.0) Monocytes (%) (Auto) % (1.0-10.0) % (1.0-10.0) 6.8 % (1.0-10.0) Eosinophils (%) (Auto) % (0.0-3.0) % (0.0-3.0) 0.7 % (0.0-3.0) Basophils (%) (Auto) % (0.0-2.0) % (0.0-2.0) 0.7 % (0.0-2.0) Differential Total Cells Counted 100 100 Neutrophils % (Manual) 86 % (45-75) 84 % (45-75) Lymphocytes % (Manual) 7 % (20-45) 11 % (20-45) Monocytes % (Manual) 6 % (1-10) 5 % (1-10) Eosinophils % (Manual) 0 % (0-3) 0 % (0-3) Basophils % (Manual) 0 % (0-2) 0 % (0-2) Band Neutrophils 1 % (0-8) 0 % (0-8) Nucleated Red Blood Cells 3 /100 WBC 2 /100 WBC Other Cell Type Pathologist review Platelet Estimate Adequate Adequate Platelet Morphology Normal Normal Polychromasia 1+ 1+ Hypochromasia 4+ 4+ Anisocytosis 3+ 3+ Microcytosis 2+ 2+ Prothrombin Time 12.7 SEC (9.30-11.50) Prothromb Time International Ratio 1.2 (0.9-1.1) Activated Partial Thromboplast Time 22 SEC (23-33) Sodium Level 134 MMOL/L (136-145) 135 MMOL/L (136-145) Potassium Level 3.9 MMOL/L (3.5-5.1) 3.9 MMOL/L (3.5-5.1) Chloride Level 101 MMOL/L (98-107) 103 MMOL/L (98-107) Carbon Dioxide Level 22 MMOL/L (21-32) 27 MMOL/L (21-32) Anion Gap 11 mmol/L (5-15) 5 mmol/L (5-15) Blood Urea Nitrogen 23 mg/dL (7-18) 17 mg/dL (7-18) Creatinine 0.7 MG/DL (0.55-1.30) 0.6 MG/DL (0.55-1.30) Estimat Glomerular Filtration Rate > 60 mL/min (>60) > 60 mL/min (>60) Glucose Level 256 MG/DL (74-106) 126 MG/DL (74-106) Calcium Level 8.2 MG/DL (8.5-10.1) 7.9 MG/DL (8.5-10.1) Total Bilirubin 0.5 MG/DL (0.2-1.0) 1.3 MG/DL (0.2-1.0) Aspartate Amino Transf (AST/SGOT) 78 U/L (15-37) 74 U/L (15-37) Alanine Aminotransferase (ALT/SGPT) 104 U/L (12-78) 103 U/L (12-78) Alkaline Phosphatase 433 U/L (46-116) 413 U/L (46-116) Troponin I 0.067 ng/mL (0.000-0.056) Total Protein 6.2 G/DL (6.4-8.2) 6.2 G/DL (6.4-8.2) Albumin 2.5 G/DL (3.4-5.0) 2.5 G/DL (3.4-5.0) Globulin 3.7 g/dL 3.7 g/dL Albumin/Globulin Ratio 0.7 (1.0-2.7) 0.7 (1.0-2.7) Lipase 39 U/L (73-393) Direct Bilirubin 0.3 MG/DL (0.0-0.3) Stool Occult Blood Positive (NEGATIVE) Test 02/25/19 18:10 02/26/19 07:35 Reticulocyte Count 1.8 % (0.5-2.0) Iron Level 13 ug/dL (50-175) Total Iron Binding Capacity 322 ug/dL (250-450) Percent Iron Saturation 4 % (15-50) Unsaturated Iron Binding 309 ug/dL (112-346) Ferritin 29 NG/ML (8-388) Lactate Dehydrogenase 348 U/L (81-234) Alpha Fetoprotein 1.4 ng/mL (0.0-8.3) Carcinoembryonic Antigen 119.0 ng/mL (0.0-4.7) CA 19-9 Antigen 111 U/mL (0-35) Folate 16.1 NG/ML (8.6-58.9) White Blood Count 9.1 K/UL (4.8-10.8) Red Blood Count 2.85 M/UL (4.70-6.10) Hemoglobin 7.0 G/DL (14.2-18.0) Hematocrit 21.9 % (42.0-52.0) Mean Corpuscular Volume 77 FL (80-99) Mean Corpuscular Hemoglobin 24.6 PG (27.0-31.0) Mean Corpuscular Hemoglobin Concent 32.1 G/DL (32.0-36.0) Red Cell Distribution Width 17.6 % (11.6-14.8) Platelet Count 113 K/UL (150-450) Mean Platelet Volume 6.3 FL (6.5-10.1) Neutrophils (%) (Auto) % (45.0-75.0) Lymphocytes (%) (Auto) % (20.0-45.0) Monocytes (%) (Auto) % (1.0-10.0) Eosinophils (%) (Auto) % (0.0-3.0) Basophils (%) (Auto) % (0.0-2.0) Differential Total Cells Counted 100 Neutrophils % (Manual) 78 % (45-75) Lymphocytes % (Manual) 19 % (20-45) Monocytes % (Manual) 3 % (1-10) Eosinophils % (Manual) 0 % (0-3) Basophils % (Manual) 0 % (0-2) Band Neutrophils 0 % (0-8) Platelet Estimate Decreased Platelet Morphology Normal Polychromasia 1+ Hypochromasia 1+ Anisocytosis 1+ Sodium Level 135 MMOL/L (136-145) Potassium Level 3.8 MMOL/L (3.5-5.1) Chloride Level 103 MMOL/L (98-107) Carbon Dioxide Level 27 MMOL/L (21-32) Anion Gap 5 mmol/L (5-15) Blood Urea Nitrogen 6 mg/dL (7-18) Creatinine 0.6 MG/DL (0.55-1.30) Estimat Glomerular Filtration Rate > 60 mL/min (>60) Glucose Level 128 MG/DL (74-106) Calcium Level 7.6 MG/DL (8.5-10.1) Height (Feet): 5 Height (Inches): 8.00 Weight (Pounds): 144 Objective Physical Exam General Appearance: alert, cachetic Head: normocephalic, at Eyes: bilateral eye normal inspection, PERRL Resp: chest non-tender, lungs clear, normal breath sounds, speaking full sentences CV: regular rate, rhythm, no edema GI: normal bowel sounds, soft, non-distended, no guarding, no rebound, ++ surgical scar abdomen. : normal inspection, no CVA tenderness MSK: back normal, normal range of motion, nt Neuro: alert, motor strength/tone normal, oriented x3 Lymphatic: no adenopathy Keegan Morillo MD Feb 26, 2019 13:30
--- NOTE | 2019-02-26 14:11 | NUR ---
RD ASSESSMENT & RECOMMENDATIONS SEE CARE ACTIVITY FOR COMPLETE ASSESSMENT DAILY ESTIMATED NEEDS: Needs based on CA, wt loss/ 65kg 30-35 kcals/kg 8645-7566 total kcals 1-1.5 g protein/kg 65-97 g total protein 25-30 mL/kg 9639-1297 total fluid mLs NUTRITION DIAGNOSIS: Increased kcal/prot needs R/T catabolic dx and recent significant wt loss as evidenced by pt w/ metastatic pancreatic cancer to liver, admitted w/ significant wt loss of 26lbs/15% in 6 months. CURRENT DIET:CARDIAC PO DIET RECOMMENDATIONS: Liberalized LOW NA diet + Ensure Enlive BID ADDITIONAL RECOMMENDATIONS: * Weekly calibrated bedscale wt given h/o wt loss * Ensure Enlive BID * Monitor PO intake and tolerance closely -> pancreatic CA, denies n/v, intolerance to food at this time
--- NOTE | 2019-02-26 15:28 | Pulmonology Progress Note ---
Assessment/Plan Assessment/Plan Pulmonary Progress Note Assessment/Plan: Impression: Severe Anemia sp TFN generalized weakness Metastatic Pancreatic cancer Elevated troponin, likely demand related Hypertension PE an DVT Plan: Transfuse PRN Xarelto with caution may need filter Protonix GI/Cardiology Consults [employer] medications PPX O2 PRN heme to see as well impression, plan, and exam edited and reviewed in detail care discussed with RN Subjective Allergies: Coded Allergies: No Known Allergies (Unverified , 08/14/14) Subjective stable HH PE and DVT + Objective Vital Signs Noted Laboratory Tests Noted 02/24/19 14:30: Stool Occult Blood [Pending] Height (Feet): 5 Height (Inches): 8.00 Weight (Pounds): 130 Objective WDWN NAD clear breath sounds bilaterally without rhonchi or wheeze [id number] without MRG NABS nontender no HSM no CCE nonfocal Subjective ROS Limited/Unobtainable: No Allergies: Coded Allergies: No Known Allergies (Unverified , 08/14/14) Objective Last 24 Hour Vital Signs Date Time Temp Pulse Resp B/P (MAP) Pulse Ox O2 Delivery O2 Flow Rate FiO2 02/26/19 12:00 74 02/26/19 12:00 98.4 75 16 107/64 (78) 97 02/26/19 10:36 99.2 02/26/19 09:48 76 116/67 02/26/19 09:00 Room Air 02/26/19 08:00 97.1 100 18 116/67 (83) 95 02/26/19 04:00 82 02/26/19 04:00 99.2 80 18 108/67 (81) 97 02/26/19 00:00 98.1 83 19 131/68 (89) 99 02/26/19 00:00 83 02/25/19 23:57 131/68 02/25/19 21:54 79 135/77 02/25/19 21:15 97.9 79 19 135/77 (96) 100 02/25/19 20:20 97.5 02/25/19 20:02 75 02/25/19 20:00 97.2 81 20 136/66 (89) 100 02/25/19 20:00 Room Air 02/25/19 19:50 81 133/66 (88) 02/25/19 17:20 118/69 02/25/19 16:35 83 02/25/19 16:00 Room Air 02/25/19 16:00 99.1 83 21 118/69 (85) 100 Intake and Output 02/25/19 02/26/19 18:59 06:59 Intake Total 1278 ml 650 ml Balance 1278 ml 650 ml Intake Oral 450 ml 350 ml IV Total 828 ml 300 ml # Voids 2 2 # Bowel Movements 3 1 Laboratory Tests 02/25/19 18:10: Reticulocyte Count 1.8, Iron Level 13L, Total Iron Binding Capacity 322, Percent Iron Saturation 4L, Unsaturated Iron Binding 309, Ferritin 29, Lactate Dehydrogenase 348H, Alpha Fetoprotein 1.4, Carcinoembryonic Antigen 119.0H, CA 19-9 Antigen 111H, Folate 16.1 02/26/19 07:35: White Blood Count 9.1, Red Blood Count 2.85L, Hemoglobin 7.0L, Hematocrit 21.9L , Mean Corpuscular Volume 77L, Mean Corpuscular Hemoglobin 24.6L, Mean Corpuscular Hemoglobin Concent 32.1, Red Cell Distribution Width 17.6H, Platelet Count 113L, Mean Platelet Volume 6.3L, Neutrophils (%) (Auto) , Lymphocytes (%) (Auto) , Monocytes (%) (Auto) , Eosinophils (%) (Auto) , Basophils (%) (Auto) , Differential Total Cells Counted 100, Neutrophils % ( Manual) 78H, Lymphocytes % (Manual) 19L, Monocytes % (Manual) 3, Eosinophils % ( Manual) 0, Basophils % (Manual) 0, Band Neutrophils 0, Platelet Estimate DecreasedL, Platelet Morphology Normal, Polychromasia 1+, Hypochromasia 1+, Anisocytosis 1+, Sodium Level 135L, Potassium Level 3.8, Chloride Level 103, Carbon Dioxide Level 27, Anion Gap 5, Blood Urea Nitrogen 6L, Creatinine 0.6, Estimat Glomerular Filtration Rate > 60, Glucose Level 128H, Calcium Level 7.6L Current Medications Medications (Trade) Dose Ordered Sig/Mark Route PRN Reason Start Time Stop Time Status Last Admin Dose Admin Acetaminophen (Tylenol) 650 mg Q6H PRN ORAL Mild Pain/Temp > 100.5 02/25/19 22:45 03/25/19 22:44 Carvedilol (Coreg) 12.5 mg EVERY 12 HOURS ORAL 02/26/19 09:00 03/28/19 08:59 02/26/19 09:48 Hydromorphone HCl (Dilaudid) 0.5 mg Q3HR PRN IVP For Pain 02/25/19 23:00 03/04/19 22:59 02/26/19 14:05 Iron Sucrose 100 mg/Sodium Chloride 60 ml @ 240 mls/hr BEDTIME IV 02/26/19 21:00 03/02/19 21:14 Lidocaine HCl (Xylocaine 1% 30ml) 30 ml NOW PRN INJ Radiology Procedure 02/26/19 13:30 03/01/19 13:25 Magnesium Hydroxide (Mom) 30 ml DAILYPRN PRN ORAL Constipation 02/26/19 17:45 03/27/19 17:44 Ondansetron HCl (Zofran) 4 mg Q6H PRN IVP Nausea & Vomiting 02/25/19 23:45 03/25/19 23:44 Pantoprazole (Protonix) 40 mg EVERY 12 HOURS IVP 02/26/19 09:00 03/26/19 08:59 02/26/19 09:48 Jimbo Piper MD Feb 26, 2019 15:28
--- NOTE | 2019-02-26 15:30 | NUR ---
DISCHARGE PLANNING DISCHARGE PLAN DISCUSSED WITH DR LUCIO PER FAMILIES REQUEST PATIENT HAS BEEN REFERRED TO [facility] T:[phone] F: [phone]
[2019-02-26 16:00] VITALS: BP 112/66
[2019-02-26] MEDS ORDERED: Milk of Magnesia 30ml Ud ORAL PRN (17:45)
[2019-02-26] MEDS ORDERED: Xarelto 15mg tab ORAL SCH (18:00)
--- NOTE | 2019-02-26 19:20 | NUR ---
HAND-OFF: Report given to PIO Walsh. Pt. in stable condition.
--- NOTE | 2019-02-26 19:43 | NUR ---
NURSE NOTES: Received pt from PIO Manuel. Pt is awake and resting in bed. Bed locked in lowest position, call light within reach. Will continue with plan of care.
[2019-02-26 20:00] VITALS: BP 128/74
[2019-02-26] MEDS: Iron Sucrose 100 MG in NS 55 ML IV SCH (21:00)
--- NOTE | 2019-02-26 21:13 | General Progress Note ---
Assessment/Plan Assessment/Plan: Assessment - anemia - improved with transfusion - Iron deficiency - metastatic pancreatic cancer - abd pain - tumor cachexia - elevated Trop - DVT / PE - OB (+) Recommendations - supportive care - monitor CBC - push po - IV Fe - PPI - Oncology f/u - EGD if shows active bleeding Subjective Allergies: Coded Allergies: No Known Allergies (Unverified , 08/14/14) Subjective Above noted c/o abd pain on anticoagulation for DVT/PE Objective Last 24 Hour Vital Signs Date Time Temp Pulse Resp B/P (MAP) Pulse Ox O2 Delivery O2 Flow Rate FiO2 02/26/19 21:01 75 135/78 02/26/19 16:00 72 02/26/19 16:00 96.8 99 16 112/66 (81) 86 02/26/19 12:00 74 02/26/19 12:00 98.4 75 16 107/64 (78) 97 02/26/19 10:36 99.2 02/26/19 09:48 76 116/67 02/26/19 09:00 Room Air 02/26/19 08:00 97.1 100 18 116/67 (83) 95 02/26/19 04:00 82 02/26/19 04:00 99.2 80 18 108/67 (81) 97 02/26/19 00:00 98.1 83 19 131/68 (89) 99 02/26/19 00:00 83 02/25/19 23:57 131/68 02/25/19 21:54 79 135/77 02/25/19 21:15 97.9 79 19 135/77 (96) 100 Intake and Output 02/25/19 02/26/19 19:00 07:00 Intake Total 1278 ml 550 ml Balance 1278 ml 550 ml Intake Oral 450 ml 350 ml IV Total 828 ml 200 ml # Voids 2 2 # Bowel Movements 3 1 Laboratory Tests 02/26/19 07:35: White Blood Count 9.1, Red Blood Count 2.85L, Hemoglobin 7.0L, Hematocrit 21.9L , Mean Corpuscular Volume 77L, Mean Corpuscular Hemoglobin 24.6L, Mean Corpuscular Hemoglobin Concent 32.1, Red Cell Distribution Width 17.6H, Platelet Count 113L, Mean Platelet Volume 6.3L, Neutrophils (%) (Auto) , Lymphocytes (%) (Auto) , Monocytes (%) (Auto) , Eosinophils (%) (Auto) , Basophils (%) (Auto) , Differential Total Cells Counted 100, Neutrophils % ( Manual) 78H, Lymphocytes % (Manual) 19L, Monocytes % (Manual) 3, Eosinophils % ( Manual) 0, Basophils % (Manual) 0, Band Neutrophils 0, Platelet Estimate DecreasedL, Platelet Morphology Normal, Polychromasia 1+, Hypochromasia 1+, Anisocytosis 1+, Sodium Level 135L, Potassium Level 3.8, Chloride Level 103, Carbon Dioxide Level 27, Anion Gap 5, Blood Urea Nitrogen 6L, Creatinine 0.6, Estimat Glomerular Filtration Rate > 60, Glucose Level 128H, Calcium Level 7.6L Height (Feet): 5 Height (Inches): 8.00 Weight (Pounds): 144 Objective Thin man NCAT supple CTA RR abd soft, (+) TTP no edema Afsaneh Hollingsworth MD Feb 26, 2019 21:13
--- NOTE | 2019-02-26 23:00 | Progress Note ---
DATE: 02/26/2019 CARDIOLOGY PROGRESS NOTE SUBJECTIVE: Blood pressure parameters are stable. The patient is on anticoagulation for acute DVT and pulmonary emboli. No signs of active bleeding noted. He is on iron replacement as well. Prognosis is very poor due to metastatic pancreatic cancer that is nonresectable. OBJECTIVE: VITAL SIGNS: Blood pressure 112/66, pulse 72, respiratory rate 16. LUNGS: Clear. ABDOMEN: Slightly distended, but soft. CARDIAC: Regular with no S3. EXTREMITIES: There is some lower extremity edema. LABORATORY DATA: His hemoglobin is down to 7. BUN 16, creatinine 0.6. Stool occult blood positive. PLAN: 1. Iron replacement. 2. Proton pump inhibitor. 3. Cautious anticoagulation. 4. Endoscopy for active bleeding only. Jimbo Velasquez M.D. DR: ELIAS JOB#: [id number] CC:
[2019-02-27] VITALS (12 sets, daily range): BP systolic 103–131; BP diastolic 61–75
[2019-02-27] MEDS: HYDROmorphone 1mg/ml Carpuject IVP PRN ×4 (03:46→22:43)
--- NOTE | 2019-02-27 06:03 | Hematology/Onc Progress Note ---
Assessment/Plan Assessment/Plan Assessment and Recs # Stage IV pancreatic cancer with liver mets, is not amenable to surgical resection --> in past attempted to do resection but was unsuccesful --> has at this time multiple liver metastasis --> CEA 119, CA 19.9 111 --> imaging has been reviewed --> recommend outpatient treatment --> is likely cause of anemia # DVt in the setting of PE, with a hypercoagulable disorder from malignancy --> do recommend either anticoagulation, in this setting or ivcF -->his h/h has dropped markedly due to JASON/bleed --> appreciate cardiology recs --> JEEVAN STOP XARELTO --> HAVE ORDERED FOR IVC Filter # Anemia of iron deficiency, unspecified rule out gi bleed --> obtain a anemi panel, has been ordered--> jason noted --> iv iron has been started --> review if occult blood is + --> gi recs noted --> hgb goal is >7, transfuse as needed --> hgb trend 3.4->8.7-->7 --> no evidence of hemolysis noted # Thrombocytopenia may be due to early dic --> plt trend 199->165-->134 # Elevated troponin --> due to demand ischemia # Episode of generalized weakness --> likely due to above # Dvt ppx scds The timing of this note does not necessarily reflect the time of the patient was seen. Greatly appreciate consultation. Subjective Constitutional: Denies: no symptoms, chills, fever, malaise, weakness, other HEENT: Denies: no symptoms, eye pain, blurred vision, tearing, double vision, ear pain, ear discharge, nose pain, nose congestion, throat pain, throat swelling, mouth pain, mouth swelling, other Cardiovascular: Denies: no symptoms, chest pain, edema, irregular heart rate, lightheadedness, palpitations, syncope, other Respiratory: Denies: no symptoms, cough, shortness of breath, SOB with excertion, SOB at rest, sputum, wheezing, other Gastrointestinal/Abdominal: Denies: no symptoms, abdomen distended, abdominal pain, black stools, tarry stools, blood in stool, constipated, diarrhea, difficulty swallowing, nausea, poor appetite, poor fluid intake, rectal bleeding , vomiting, other Genitourinary: Denies: no symptoms, burning, discharge, frequency, flank pain, hematuria, incontinence, pain, urgency, other Neurologic/Psychiatric: Denies: no symptoms, anxiety, depressed, emotional problems, headache, numbness, paresthesia, pre-existing deficit, seizure, tingling, tremors, weakness, other Allergies: Coded Allergies: No Known Allergies (Unverified , 08/14/14) Subjective 02/26: no events, hgb remains low, dw Kaleb, have ordered ivc filter, stopped xarelto, shyann Hernandez 02/27: no events, no bleeding noted, explained ivc filter procedure, is npo today Objective Objective Current Medications Medications (Trade) Dose Ordered Sig/Mark Route PRN Reason Start Time Stop Time Status Last Admin Dose Admin Acetaminophen (Tylenol) 650 mg Q6H PRN ORAL Mild Pain/Temp > 100.5 02/25/19 22:45 03/25/19 22:44 Carvedilol (Coreg) 12.5 mg EVERY 12 HOURS ORAL 02/26/19 09:00 03/28/19 08:59 02/26/19 21:01 Hydromorphone HCl (Dilaudid) 0.5 mg Q3HR PRN IVP For Pain 02/25/19 23:00 03/04/19 22:59 02/27/19 03:46 Iron Sucrose 100 mg/Sodium Chloride 60 ml @ 240 mls/hr BEDTIME IV 02/26/19 21:00 03/02/19 21:14 02/26/19 21:00 Lidocaine HCl (Xylocaine 1% 30ml) 30 ml NOW PRN INJ Radiology Procedure 02/26/19 13:30 03/01/19 13:25 Magnesium Hydroxide (Mom) 30 ml DAILYPRN PRN ORAL Constipation 02/26/19 17:45 03/27/19 17:44 Ondansetron HCl (Zofran) 4 mg Q6H PRN IVP Nausea & Vomiting 02/25/19 23:45 03/25/19 23:44 Pantoprazole (Protonix) 40 mg EVERY 12 HOURS IVP 02/26/19 09:00 03/26/19 08:59 02/26/19 21:01 Last 24 Hour Vital Signs Date Time Temp Pulse Resp B/P (MAP) Pulse Ox O2 Delivery O2 Flow Rate FiO2 02/27/19 04:00 98.6 86 17 131/70 (90) 96 02/27/19 04:00 86 02/27/19 00:00 98.6 79 21 127/75 (92) 99 02/27/19 00:00 79 02/26/19 21:01 75 135/78 02/26/19 21:00 Room Air 02/26/19 20:00 96.5 76 20 128/74 (92) 98 02/26/19 20:00 76 02/26/19 16:00 72 02/26/19 16:00 96.8 99 16 112/66 (81) 86 02/26/19 12:00 74 02/26/19 12:00 98.4 75 16 107/64 (78) 97 02/26/19 10:36 99.2 02/26/19 09:48 76 116/67 02/26/19 09:00 Room Air 02/26/19 08:00 97.1 100 18 116/67 (83) 95 02/26/19 04:00 82 02/26/19 04:00 99.2 80 18 108/67 (81) 97 02/26/19 00:00 98.1 83 19 131/68 (89) 99 02/26/19 00:00 83 02/25/19 23:57 131/68 02/25/19 21:54 79 135/77 02/25/19 21:15 97.9 79 19 135/77 (96) 100 02/25/19 20:20 97.5 02/25/19 20:02 75 02/25/19 20:00 97.2 81 20 136/66 (89) 100 02/25/19 20:00 Room Air 02/25/19 19:50 81 133/66 (88) 02/25/19 17:20 118/69 02/25/19 16:35 83 02/25/19 16:00 Room Air 02/25/19 16:00 99.1 83 21 118/69 (85) 100 02/25/19 12:00 Room Air 02/25/19 12:00 109/68 02/25/19 12:00 97.5 71 24 109/68 (82) 98 02/25/19 11:41 70 02/25/19 08:26 86 114/65 02/25/19 08:00 98.6 86 21 114/65 (81) 100 02/25/19 08:00 72 02/25/19 08:00 Room Air Intake and Output 02/26/19 02/27/19 19:00 07:00 Intake Total 360 ml Balance 360 ml Intake Oral 360 ml # Voids 2 # Bowel Movements 1 Labs Test 02/24/19 14:30 02/25/19 18:10 02/26/19 07:35 Stool Occult Blood Positive (NEGATIVE) Reticulocyte Count 1.8 % (0.5-2.0) Iron Level 13 ug/dL (50-175) Total Iron Binding Capacity 322 ug/dL (250-450) Percent Iron Saturation 4 % (15-50) Unsaturated Iron Binding 309 ug/dL (112-346) Ferritin 29 NG/ML (8-388) Lactate Dehydrogenase 348 U/L (81-234) Alpha Fetoprotein 1.4 ng/mL (0.0-8.3) Carcinoembryonic Antigen 119.0 ng/mL (0.0-4.7) CA 19-9 Antigen 111 U/mL (0-35) Folate 16.1 NG/ML (8.6-58.9) White Blood Count 9.1 K/UL (4.8-10.8) Red Blood Count 2.85 M/UL (4.70-6.10) Hemoglobin 7.0 G/DL (14.2-18.0) Hematocrit 21.9 % (42.0-52.0) Mean Corpuscular Volume 77 FL (80-99) Mean Corpuscular Hemoglobin 24.6 PG (27.0-31.0) Mean Corpuscular Hemoglobin Concent 32.1 G/DL (32.0-36.0) Red Cell Distribution Width 17.6 % (11.6-14.8) Platelet Count 113 K/UL (150-450) Mean Platelet Volume 6.3 FL (6.5-10.1) Neutrophils (%) (Auto) % (45.0-75.0) Lymphocytes (%) (Auto) % (20.0-45.0) Monocytes (%) (Auto) % (1.0-10.0) Eosinophils (%) (Auto) % (0.0-3.0) Basophils (%) (Auto) % (0.0-2.0) Differential Total Cells Counted 100 Neutrophils % (Manual) 78 % (45-75) Lymphocytes % (Manual) 19 % (20-45) Monocytes % (Manual) 3 % (1-10) Eosinophils % (Manual) 0 % (0-3) Basophils % (Manual) 0 % (0-2) Band Neutrophils 0 % (0-8) Platelet Estimate Decreased Platelet Morphology Normal Polychromasia 1+ Hypochromasia 1+ Anisocytosis 1+ Sodium Level 135 MMOL/L (136-145) Potassium Level 3.8 MMOL/L (3.5-5.1) Chloride Level 103 MMOL/L (98-107) Carbon Dioxide Level 27 MMOL/L (21-32) Anion Gap 5 mmol/L (5-15) Blood Urea Nitrogen 6 mg/dL (7-18) Creatinine 0.6 MG/DL (0.55-1.30) Estimat Glomerular Filtration Rate > 60 mL/min (>60) Glucose Level 128 MG/DL (74-106) Calcium Level 7.6 MG/DL (8.5-10.1) Height (Feet): 5 Height (Inches): 8.00 Weight (Pounds): 144 Objective Physical Exam General Appearance: alert, cachetic Head: normocephalic, at Eyes: bilateral eye normal inspection, PERRL Resp: chest non-tender, lungs clear, normal breath sounds, speaking full sentences CV: regular rate, rhythm, no edema GI: normal bowel sounds, soft, non-distended, no guarding, no rebound, ++ surgical scar abdomen. : normal inspection, no CVA tenderness MSK: back normal, normal range of motion, nt Neuro: alert, motor strength/tone normal, oriented x3 Lymphatic: no adenopathy Keegan Morillo MD Feb 27, 2019 06:03
[2019-02-27] MEDS ORDERED: Lidocaine 1% Plain 30 ml INJ ONE (07:00)
[2019-02-27] MEDS ORDERED: Omnipaque-300 100ml vial INJ ONE (07:00)
[2019-02-27] MEDS ORDERED: Heparin1,000 units/500ml Premix(Conc:2 units/ml) ONE (07:00)
--- NOTE | 2019-02-27 07:05 | NUR ---
HAND-OFF: Report given to PIO Manuel. Pt. in stable condition.
--- NOTE | 2019-02-27 07:15 | NUR ---
NURSE NOTES: Report received from PIO Walsh. Pt. in RA. new 22G IV on L H, site intact. Sleeping comfortably, no S/S of distress noted. Bed on lowest position, side rails upx2, brakes engaged. Call light placed within easy reach.
[2019-02-27 07:19] LABS: HEMATOCRIT 22.9 % (42.0-52.0); HEMOGLOBIN 7.3 G/DL (14.2-18.0); MEAN CORPUSCULAR VOLUME 78 FL (80-99); PLATELET COUNT 106 K/UL (150-450); RED BLOOD COUNT 2.96 M/UL (4.70-6.10); RED CELL DISTRIBUTION WIDTH 18.2 % (11.6-14.8); WHITE BLOOD COUNT 7.5 K/UL (4.8-10.8)
[2019-02-27 07:26] LABS: ANION GAP 5 mmol/L (5-15); BLOOD UREA NITROGEN 9 mg/dL (7-18); CALCIUM 8.1 MG/DL (8.5-10.1); CARBON DIOXIDE 28 MMOL/L (21-32); CHLORIDE 101 MMOL/L (98-107); CREATININE 0.6 MG/DL (0.55-1.30); POTASSIUM 3.9 MMOL/L (3.5-5.1); SODIUM 134 MMOL/L (136-145)
--- NOTE | 2019-02-27 08:16 | General Progress Note ---
Assessment/Plan Assessment/Plan: Impression: Severe Anemia generalized weakness Metastatic Pancreatic cancer Elevated troponin, likely demand related Hypertension PE an DVT Plan: Transfused per heme, IVC filter Protonix GI/Cardiology Consults [employer]NAG[employer] PROFESSOR medications PPX O2 PRN heme appreciated impression, plan, and exam edited and reviewed in detail care discussed with RN Subjective Allergies: Coded Allergies: No Known Allergies (Unverified , 08/14/14) Subjective needs IVC filter PE and DVT + Objective Last 24 Hour Vital Signs Date Time Temp Pulse Resp B/P (MAP) Pulse Ox O2 Delivery O2 Flow Rate FiO2 02/27/19 04:00 98.6 86 17 131/70 (90) 96 02/27/19 04:00 86 02/27/19 00:00 98.6 79 21 127/75 (92) 99 02/27/19 00:00 79 02/26/19 21:01 75 135/78 02/26/19 21:00 Room Air 02/26/19 20:00 96.5 76 20 128/74 (92) 98 02/26/19 20:00 76 02/26/19 16:00 72 02/26/19 16:00 96.8 99 16 112/66 (81) 86 02/26/19 12:00 74 02/26/19 12:00 98.4 75 16 107/64 (78) 97 02/26/19 10:36 99.2 02/26/19 09:48 76 116/67 02/26/19 09:00 Room Air Intake and Output 02/26/19 02/27/19 19:00 07:00 Intake Total 360 ml Output Total 100 ml Balance 360 ml -100 ml Intake Oral 360 ml Output Urine Total 100 ml # Voids 2 # Bowel Movements 1 Laboratory Tests 02/27/19 06:10: White Blood Count 7.5, Red Blood Count 2.96L, Hemoglobin 7.3L, Hematocrit 22.9L , Mean Corpuscular Volume 78L, Mean Corpuscular Hemoglobin 24.7L, Mean Corpuscular Hemoglobin Concent 31.9L, Red Cell Distribution Width 18.2H, Platelet Count 106L, Mean Platelet Volume 6.6, Neutrophils (%) (Auto) , Lymphocytes (%) (Auto) , Monocytes (%) (Auto) , Eosinophils (%) (Auto) , Basophils (%) (Auto) , Neutrophils % (Manual) [Pending], Lymphocytes % (Manual) [Pending], Platelet Estimate [Pending], Platelet Morphology [Pending], Sodium Level 134L, Potassium Level 3.9, Chloride Level 101, Carbon Dioxide Level 28, Anion Gap 5, Blood Urea Nitrogen 9, Creatinine 0.6, Estimat Glomerular Filtration Rate > 60, Glucose Level 147H, Calcium Level 8.1L Height (Feet): 5 Height (Inches): 8.00 Weight (Pounds): 144 Objective WDWN NAD clear breath sounds bilaterally without rhonchi or wheeze [id number] without MRG NABS nontender no HSM no CCE nonfocal Roberth Hernandez MD Feb 27, 2019 08:16
[2019-02-27] MEDS: Carvedilol 6.25mg Tab ORAL SCH ×2 (09:15→22:19)
[2019-02-27] MEDS: Pantoprazole Inj IVP SCH ×2 (09:16→21:57)
--- NOTE | 2019-02-27 10:54 | NUR ---
CASE MANAGEMENT:REVIEW 02/27/19 SI: SEVERE ANEMIA.ELEVATED TROPONIN BILATERAL PULMONARY EMBOLI AND BLE DVT'S METASTATIC PANCREATIC CANCER 99.7 83 18 110/63 98% ON RA H/H-7.3/22.9 PLT-106 IS: IV DILAUDID Q4HRS PRN IV VENOFER QHS IV PROTONIX Q12 COREG PO Q12 : STEP DOWN UNIT DCP: FROM HOME PLAN: SCHEDULED FOR IVC FILTER PLACEMENT TODAY FAMILY HAS SIGNED WITH [facility] T:[phone] F: [phone]
[2019-02-27] MEDS ORDERED: NS 275ml ONE (13:38)
[2019-02-27] MEDS ORDERED: Tubing IV Secondary IV ONE (13:38)
[2019-02-27] MEDS ORDERED: D5 1/2NS 1000ml IV ONE (13:38)
[2019-02-27] MEDS ORDERED: Tubing Blood Filter IV ONE (13:38)
--- NOTE | 2019-02-27 15:53 | Pre-Procedure Note/Attestation ---
Pre-Procedure Note/Attestation Complete Prior to Procedure Planned Procedure: not applicable Procedure Narrative: IVC filter Indications for Procedure Pre-Operative Diagnosis: PE, DVT, contraindication to anticoagulation Attestation I attest that I discussed the nature of the procedure; its benefits; risks and complications; and alternatives (and the risks and benefits of such alternatives ), prior to the procedure, with the patient (or the patient's legal door to door sales representative). I attest that, if there was a reasonable possibility of needing a blood transfusion, the patient (or the patient's legal door to door sales representative) was given the [facility] standardized written summary, pursuant to the [place] Blood Safety Act ([place] Health and Safety Code # 1645, as amended). I attest that I re-evaluated the patient just prior to the surgery and that there has been no change in the patient's H&P, except as documented below: Francois Galdamez MD Feb 27, 2019 15:53
--- NOTE | 2019-02-27 16:22 | Brief Operative Note ---
Immediate Post Operative Note Operative Note Pre-op Diagnosis: PE, DVT, contraindication to anticoagulation Procedure: IVC filter Post-op Diagnosis: same as pre-op Surgeon: Alicia Valle Anesthesia: local Specimen: none Complications: none Condition: stable Fluids: none Implant(s) used?: Yes - Argon Option Elite IVC filter Francois Valle MD Feb 27, 2019 16:22
--- NOTE | 2019-02-27 19:25 | NUR ---
NURSE NOTES: Received pt and report from PIO Manuel. Observed pt resting in bed with both eyes open with family member at bedside. Pt is A/Ox4. monitoring tech is in placed, IV site intact, asymptomatic, and patent. Pt had an IVC filter placement today; no bleeding in area noted. Will continue to closely monitor area for any bleeding. Bed is in the lowest position and locked. Call light and bedside table is within reach. No signs/symptoms of acute distress noted at this time. Will continue plan of care.
--- NOTE | 2019-02-27 19:35 | NUR ---
HAND-OFF: Report given to PIO Shipman. Pt. in stable condition. Plan of care endorsed.
[2019-02-27] MEDS: Iron Sucrose 100 MG in NS 55 ML IV SCH (21:41)
--- NOTE | 2019-02-27 22:29 | General Progress Note ---
Assessment/Plan Assessment/Plan: Assessment - anemia - improved with transfusion - Iron deficiency - metastatic pancreatic cancer - abd pain - tumor cachexia - elevated Trop - DVT / PE - s/p IVC filter - OB (+) Recommendations - supportive care - monitor CBC - push po - IV Fe - PPI - Oncology f/u - EGD if shows active bleeding Subjective Allergies: Coded Allergies: No Known Allergies (Unverified , 08/14/14) Subjective Above noted c/o abd pain s/p IVC filter Objective Last 24 Hour Vital Signs Date Time Temp Pulse Resp B/P (MAP) Pulse Ox O2 Delivery O2 Flow Rate FiO2 02/27/19 22:19 72 125/66 02/27/19 16:25 73 18 105/64 (78) 99 02/27/19 16:20 71 18 107/61 (76) 98 02/27/19 16:15 71 18 103/61 (75) 99 02/27/19 16:10 67 18 106/64 (78) 100 02/27/19 16:05 69 18 104/65 (78) 100 02/27/19 16:00 71 02/27/19 16:00 70 20 112/71 (85) 97 02/27/19 15:39 69 18 02/27/19 12:00 98.5 73 20 110/61 (77) 98 02/27/19 12:00 70 02/27/19 09:15 83 110/68 02/27/19 09:00 Room Air 02/27/19 08:00 99.7 83 18 110/63 (79) 98 02/27/19 08:00 80 02/27/19 04:00 98.6 86 17 131/70 (90) 96 02/27/19 04:00 86 02/27/19 00:00 98.6 79 21 127/75 (92) 99 02/27/19 00:00 79 Intake and Output 02/26/19 02/27/19 19:00 07:00 Intake Total 360 ml Output Total 100 ml Balance 360 ml -100 ml Intake Oral 360 ml Output Urine Total 100 ml # Voids 2 # Bowel Movements 1 Laboratory Tests 02/27/19 06:10: White Blood Count 7.5, Red Blood Count 2.96L, Hemoglobin 7.3L, Hematocrit 22.9L , Mean Corpuscular Volume 78L, Mean Corpuscular Hemoglobin 24.7L, Mean Corpuscular Hemoglobin Concent 31.9L, Red Cell Distribution Width 18.2H, Platelet Count 106L, Mean Platelet Volume 6.6, Neutrophils (%) (Auto) , Lymphocytes (%) (Auto) , Monocytes (%) (Auto) , Eosinophils (%) (Auto) , Basophils (%) (Auto) , Differential Total Cells Counted 100, Neutrophils % ( Manual) 82H, Lymphocytes % (Manual) 10L, Monocytes % (Manual) 7, Eosinophils % ( Manual) 1, Basophils % (Manual) 0, Band Neutrophils 0, Platelet Estimate DecreasedL, Platelet Morphology Normal, Hypochromasia 3+, Anisocytosis 2+, Microcytosis 1+, Sodium Level 134L, Potassium Level 3.9, Chloride Level 101, Carbon Dioxide Level 28, Anion Gap 5, Blood Urea Nitrogen 9, Creatinine 0.6, Estimat Glomerular Filtration Rate > 60, Glucose Level 147H, Calcium Level 8.1L Height (Feet): 5 Height (Inches): 8.00 Weight (Pounds): 144 Objective Thin man NCAT supple CTA RR abd soft, (+) TTP no edema Afsaneh Hollingsworth MD Feb 27, 2019 22:29
[2019-02-28] VITALS: BP 121/75
[2019-02-28 04:00] VITALS: BP 106/53
--- NOTE | 2019-02-28 05:15 | Progress Note ---
DATE: 02/27/2019 SUBJECTIVE: The patient continued decrease in hemoglobin level. Anticoagulation was discontinued. IVC filter was placed in view of extensive DVT and pulmonary emboli. OBJECTIVE: LUNGS: Clear. CARDIAC: Regular. No third heart sound. EXTREMITIES: No edema. LABORATORY DATA: Hemoglobin 7.3. Potassium 3.9. IMPRESSION: 1. Pancreatic cancer. 2. Iron deficiency anemia. 3. DVT, PE, and now status post IVC filter. PLAN: 1. Monitor blood counts. 2. Iron replacement. 3. Transfuse as needed. 4. Empiric proton pump inhibitor. 5. Continue beta-johnie for arrhythmias suppression, off anticoagulation at this time. Jimbo Velasquez M.D. DR: SUSIE JOB#: [id number] CC:
[2019-02-28 07:18] LABS: HEMATOCRIT 22.2 % (42.0-52.0); MEAN CORPUSCULAR VOLUME 78 FL (80-99); PLATELET COUNT 109 K/UL (150-450); RED BLOOD COUNT 2.86 M/UL (4.70-6.10); RED CELL DISTRIBUTION WIDTH 18.3 % (11.6-14.8); WHITE BLOOD COUNT 7.4 K/UL (4.8-10.8)
[2019-02-28 07:37] LABS: ANION GAP 9 mmol/L (5-15); BLOOD UREA NITROGEN 13 mg/dL (7-18); CALCIUM 8.4 MG/DL (8.5-10.1); CARBON DIOXIDE 24 MMOL/L (21-32); CHLORIDE 103 MMOL/L (98-107); CREATININE 0.6 MG/DL (0.55-1.30); POTASSIUM 3.8 MMOL/L (3.5-5.1); SODIUM 136 MMOL/L (136-145)
--- NOTE | 2019-02-28 07:48 | NUR ---
HAND-OFF: Report given to PIO Mckay. Plan of care endorsed.
[2019-02-28 07:59] VITALS: BP 107/56
--- NOTE | 2019-02-28 08:04 | NUR ---
NURSE NOTES: Patient stable, AOx4 with no complaints and no s/sx of distress. RR even and unlabored on RA. Edema noted to BL extremities. LT>RT. Does not want to eat breakfast right now. Side rails upx2, call light within reach, bed low and locked. Will continue to monitor.
[2019-02-28] MEDS: Pantoprazole Inj IVP SCH ×2 (08:21→20:07)
[2019-02-28] MEDS: Carvedilol 6.25mg Tab ORAL SCH ×2 (08:21→20:09)
[2019-02-28] MEDS: HYDROmorphone 1mg/ml Carpuject IVP PRN ×3 (10:00→20:09)
--- NOTE | 2019-02-28 10:26 | Diagnostic Imaging Report ---
Indications: Deep venous thrombosis, contraindication to anticoagulation Technique: Case discussed by phone with referring physician Dr. Morillo. Informed consent obtained prior to commencement of the procedure. Prior CT scan reviewed, and demonstrates no caval anomalies . Procedural timeout performed. Total sterile technique, including sterile probe cover and sterile gel, sterile gloves, hand hygiene, hat, mask, sterile gown, large sterile drape, and preparation with 2% chlorhexidine utilized. Local anesthesia with 1% lidocaine. Ultrasound reveals patent compressible right internal jugular vein. Under real-time ultrasound guidance, puncture right internal jugular vein, passage of a guidewire, into the inferior vena cava, , over which was passed a pigtail marker catheter. This was directed into the left common iliac vein, and a limited iliac venogram performed using hand injection of contrast. Catheter was then withdrawn to the level of the iliac venous confluence.. An inferior venacavogram performed, using machine injection of contrast. The images were reviewed. The position of the renal veins was determined. The catheter was then exchanged for the introducer assembly of the Argon Option Elite inferior vena cava filter The introducer assembly was advanced further into the inferior vena cava over a guidewire, and the guidewire and dilator were removed. The filter was passed into the into the sheath. It was then positioned into the appropriate position. The filter was then deployed by unsheathing it. The filter introducer was removed, and a followup inferior venacavogram was performed using hand injection of contrast through the sheath. The filter position was deemed acceptable, with only a small amount of tilt. The sheath was removed. Pressure held on the right neck until hemostasis was achieved. The patient tolerated procedure well, without immediate complication. Total fluoroscopy time 238.9 seconds. Total dose area product 1.2 mGym2 Number of images: 4 Comparison: none. Findings:Left iliac venogram demonstrates no evidence of caval anomaly. Inferior venacavogram demonstrates normal caliber inferior vena cava. Single renal veins. No intracaval thrombus. Completion inferior venacavogram demonstrates satisfactory filter position, with only minimal tilt. Impression: Successful placement of right transjugular infrarenal inferior vena cava filter, as above.
--- NOTE | 2019-02-28 10:51 | Hematology/Onc Progress Note ---
Assessment/Plan Assessment/Plan Assessment and Recs # Stage IV pancreatic cancer with liver mets, is not amenable to surgical resection --> in past attempted to do resection but was unsuccesful --> has at this time multiple liver metastasis --> CEA 119, CA 19.9 111 --> imaging has been reviewed --> recommend outpatient treatment --> is likely cause of anemia # DVt in the setting of PE, with a hypercoagulable disorder from malignancy is s /p IVCF --> do recommend either anticoagulation, in this setting or ivcF -->his h/h has dropped markedly due to JASON/bleed --> appreciate cardiology recs --> JEEVAN STOP XARELTO --> 02/27/19: s/p IVC filter placement # Anemia of iron deficiency, unspecified rule out gi bleed --> obtain a anemi panel, has been ordered--> jason noted --> iv iron has been started --> review if occult blood is + --> gi recs noted --> hgb goal is >7, transfuse as needed --> hgb trend 3.4->8.7-->7-->7 --> no evidence of hemolysis noted # Thrombocytopenia may be due to early dic --> plt trend 199->165-->134 # Elevated troponin --> due to demand ischemia # Episode of generalized weakness --> likely due to above # Dvt ppx scds The timing of this note does not necessarily reflect the time of the patient was seen. Greatly appreciate consultation. Subjective Constitutional: Denies: no symptoms, chills, fever, malaise, weakness, other HEENT: Denies: no symptoms, eye pain, blurred vision, tearing, double vision, ear pain, ear discharge, nose pain, nose congestion, throat pain, throat swelling, mouth pain, mouth swelling, other Cardiovascular: Denies: no symptoms, chest pain, edema, irregular heart rate, lightheadedness, palpitations, syncope, other Respiratory: Denies: no symptoms, cough, shortness of breath, SOB with excertion, SOB at rest, sputum, wheezing, other Gastrointestinal/Abdominal: Denies: no symptoms, abdomen distended, abdominal pain, black stools, tarry stools, blood in stool, constipated, diarrhea, difficulty swallowing, nausea, poor appetite, poor fluid intake, rectal bleeding , vomiting, other Genitourinary: Denies: no symptoms, burning, discharge, frequency, flank pain, hematuria, incontinence, pain, urgency, other Endocrine: Denies: no symptoms, excessive sweating, flushing, intolerance to cold, intolerance to heat, increased hunger, increased thirst, increased urine, unexplained weight gain, unexplained weight loss, other Allergies: Coded Allergies: No Known Allergies (Unverified , 08/14/14) Subjective 02/26: no events, hgb remains low, dw Kaleb, have ordered ivc filter, stopped xarelto, shyann Hernandez 02/27: no events, no bleeding noted, explained ivc filter procedure, is npo today 02/28: no major changes, no bleeding noted, s/p ivc F yesterday Objective Objective Current Medications Medications (Trade) Dose Ordered Sig/Mark Route PRN Reason Start Time Stop Time Status Last Admin Dose Admin Acetaminophen (Tylenol) 650 mg Q6H PRN ORAL Mild Pain/Temp > 100.5 02/25/19 22:45 03/25/19 22:44 Carvedilol (Coreg) 12.5 mg EVERY 12 HOURS ORAL 02/26/19 09:00 03/28/19 08:59 02/27/19 22:19 Hydromorphone HCl (Dilaudid) 0.5 mg Q3HR PRN IVP For Pain 02/25/19 23:00 03/04/19 22:59 02/27/19 03:46 Hydromorphone HCl (Dilaudid) 1 mg Q4H PRN IVP Severe Pain (Pain Scale 7-10) 02/27/19 09:30 03/06/19 09:29 02/28/19 10:00 Iron Sucrose 100 mg/Sodium Chloride 60 ml @ 240 mls/hr BEDTIME IV 02/26/19 21:00 03/02/19 21:14 02/27/19 21:41 Lidocaine HCl (Xylocaine 1% 30ml) 30 ml NOW PRN INJ Radiology Procedure 02/26/19 13:30 03/01/19 13:25 Magnesium Hydroxide (Mom) 30 ml DAILYPRN PRN ORAL Constipation 02/26/19 17:45 03/27/19 17:44 Ondansetron HCl (Zofran) 4 mg Q6H PRN IVP Nausea & Vomiting 02/25/19 23:45 03/25/19 23:44 Pantoprazole (Protonix) 40 mg EVERY 12 HOURS IVP 02/26/19 09:00 03/26/19 08:59 02/28/19 08:21 Last 24 Hour Vital Signs Date Time Temp Pulse Resp B/P (MAP) Pulse Ox O2 Delivery O2 Flow Rate FiO2 02/28/19 09:00 Room Air 02/28/19 08:21 75 107/56 02/28/19 08:00 73 02/28/19 07:59 97.7 75 18 107/56 (73) 98 02/28/19 04:00 98.4 74 20 106/53 (70) 97 02/28/19 04:00 75 02/28/19 00:00 71 02/28/19 00:00 98.2 77 18 121/75 (90) 100 02/27/19 22:19 72 125/66 02/27/19 21:00 Room Air 02/27/19 20:00 76 02/27/19 20:00 99.1 72 17 125/66 (85) 97 02/27/19 16:25 73 18 105/64 (78) 99 02/27/19 16:20 71 18 107/61 (76) 98 02/27/19 16:15 71 18 103/61 (75) 99 02/27/19 16:10 67 18 106/64 (78) 100 02/27/19 16:05 69 18 104/65 (78) 100 02/27/19 16:00 71 02/27/19 16:00 70 20 112/71 (85) 97 02/27/19 15:39 69 18 02/27/19 12:00 98.5 73 20 110/61 (77) 98 02/27/19 12:00 70 02/27/19 09:15 83 110/68 02/27/19 09:00 Room Air 02/27/19 08:00 99.7 83 18 110/63 (79) 98 02/27/19 08:00 80 02/27/19 04:00 98.6 86 17 131/70 (90) 96 02/27/19 04:00 86 02/27/19 00:00 98.6 79 21 127/75 (92) 99 12/5/19 00:00 79 02/26/19 21:01 75 135/78 02/26/19 21:00 Room Air 02/26/19 20:00 96.5 76 20 128/74 (92) 98 02/26/19 20:00 76 02/26/19 16:00 72 02/26/19 16:00 96.8 99 16 112/66 (81) 86 02/26/19 12:00 74 02/26/19 12:00 98.4 75 16 107/64 (78) 97 Intake and Output 02/27/19 02/28/19 19:00 07:00 Intake Total 140 ml Output Total 500 ml Balance 140 ml -500 ml Intake Oral 140 ml Output Urine Total 500 ml # Voids 2 Labs Test 02/25/19 18:10 02/26/19 07:35 02/27/19 06:10 02/28/19 05:42 Reticulocyte Count 1.8 % (0.5-2.0) Iron Level 13 ug/dL (50-175) Total Iron Binding Capacity 322 ug/dL (250-450) Percent Iron Saturation 4 % (15-50) Unsaturated Iron Binding 309 ug/dL (112-346) Ferritin 29 NG/ML (8-388) Lactate Dehydrogenase 348 U/L (81-234) Alpha Fetoprotein 1.4 ng/mL (0.0-8.3) Carcinoembryonic Antigen 119.0 ng/mL (0.0-4.7) CA 19-9 Antigen 111 U/mL (0-35) Folate 16.1 NG/ML (8.6-58.9) White Blood Count 9.1 K/UL (4.8-10.8) 7.5 K/UL (4.8-10.8) 7.4 K/UL (4.8-10.8) Red Blood Count 2.85 M/UL (4.70-6.10) 2.96 M/UL (4.70-6.10) 2.86 M/UL (4.70-6.10) Hemoglobin 7.0 G/DL (14.2-18.0) 7.3 G/DL (14.2-18.0) 7.0 G/DL (14.2-18.0) Hematocrit 21.9 % (42.0-52.0) 22.9 % (42.0-52.0) 22.2 % (42.0-52.0) Mean Corpuscular Volume 77 FL (80-99) 78 FL (80-99) 78 FL (80-99) Mean Corpuscular Hemoglobin 24.6 PG (27.0-31.0) 24.7 PG (27.0-31.0) 24.6 PG (27.0-31.0) Mean Corpuscular Hemoglobin Concent 32.1 G/DL (32.0-36.0) 31.9 G/DL (32.0-36.0) 31.7 G/DL (32.0-36.0) Red Cell Distribution Width 17.6 % (11.6-14.8) 18.2 % (11.6-14.8) 18.3 % (11.6-14.8) Platelet Count 113 K/UL (150-450) 106 K/UL (150-450) 109 K/UL (150-450) Mean Platelet Volume 6.3 FL (6.5-10.1) 6.6 FL (6.5-10.1) 7.0 FL (6.5-10.1) Neutrophils (%) (Auto) % (45.0-75.0) % (45.0-75.0) % (45.0-75.0) Lymphocytes (%) (Auto) % (20.0-45.0) % (20.0-45.0) % (20.0-45.0) Monocytes (%) (Auto) % (1.0-10.0) % (1.0-10.0) % (1.0-10.0) Eosinophils (%) (Auto) % (0.0-3.0) % (0.0-3.0) % (0.0-3.0) Basophils (%) (Auto) % (0.0-2.0) % (0.0-2.0) % (0.0-2.0) Differential Total Cells Counted 100 100 Neutrophils % (Manual) 78 % (45-75) 82 % (45-75) Lymphocytes % (Manual) 19 % (20-45) 10 % (20-45) Monocytes % (Manual) 3 % (1-10) 7 % (1-10) Eosinophils % (Manual) 0 % (0-3) 1 % (0-3) Basophils % (Manual) 0 % (0-2) 0 % (0-2) Band Neutrophils 0 % (0-8) 0 % (0-8) Platelet Estimate Decreased Decreased Platelet Morphology Normal Normal Polychromasia 1+ Hypochromasia 1+ 3+ Anisocytosis 1+ 2+ Sodium Level 135 MMOL/L (136-145) 134 MMOL/L (136-145) 136 MMOL/L (136-145) Potassium Level 3.8 MMOL/L (3.5-5.1) 3.9 MMOL/L (3.5-5.1) 3.8 MMOL/L (3.5-5.1) Chloride Level 103 MMOL/L (98-107) 101 MMOL/L (98-107) 103 MMOL/L (98-107) Carbon Dioxide Level 27 MMOL/L (21-32) 28 MMOL/L (21-32) 24 MMOL/L (21-32) Anion Gap 5 mmol/L (5-15) 5 mmol/L (5-15) 9 mmol/L (5-15) Blood Urea Nitrogen 6 mg/dL (7-18) 9 mg/dL (7-18) 13 mg/dL (7-18) Creatinine 0.6 MG/DL (0.55-1.30) 0.6 MG/DL (0.55-1.30) 0.6 MG/DL (0.55-1.30) Estimat Glomerular Filtration Rate > 60 mL/min (>60) > 60 mL/min (>60) > 60 mL/min (>60) Glucose Level 128 MG/DL (74-106) 147 MG/DL (74-106) 142 MG/DL (74-106) Calcium Level 7.6 MG/DL (8.5-10.1) 8.1 MG/DL (8.5-10.1) 8.4 MG/DL (8.5-10.1) Microcytosis 1+ Height (Feet): 5 Height (Inches): 8.00 Weight (Pounds): 144 Objective Physical Exam General Appearance: alert, cachetic Head: normocephalic, at Eyes: bilateral eye normal inspection, PERRL Resp: chest non-tender, lungs clear, normal breath sounds, speaking full sentences CV: regular rate, rhythm, no edema GI: normal bowel sounds, soft, non-distended, no guarding, no rebound, ++ surgical scar abdomen. : normal inspection, no CVA tenderness MSK: back normal, normal range of motion, nt Neuro: alert, motor strength/tone normal, oriented x3 Lymphatic: no adenopathy Keegan Morillo MD Feb 28, 2019 10:51
[2019-02-28 12:00] VITALS: BP 125/62
--- NOTE | 2019-02-28 13:36 | CDS Physician Query ---
Clarification is required for compliance, coding accuracy, and to reflect severity of illness for this patient Dear Dr. Roberth Hernandez Date: 02/28/2019 Perioperative Assistant/CDS Name: Rajni Olmstead Clinical Documentation states: HNP - 58-year-old man with history of Metastatic Pancreatic Cancer with extensive Liver Metastases, admitted with severe Anemia, had complained of increasing weakness, palpitations for a few days...General Appearance: cachectic RD note: Increased kcal/prot needs R/T catabolic dx and recent significant wt loss as evidenced by pt w/ metastatic pancreatic cancer to liver, admitted w/ significant wt loss of 26lbs/15% in 6 months. Albumin 2.5, BMI on admission 19 Please select the most appropriate option: [] Protein/Calorie Malnutrition [] Mild [] Moderate [x] Severe [] Hypoalbuminemia [x] Cachexia [] Underweight [] Intestinal malabsorption [] Other [] Unable to determine [] Not Applicable Present on Admission: [x] Yes [] No [] Clinically Undetermined Physician signature Date Please also document in your Progress Notes and/or Discharge Summary and indicate if the condition was present on admission. MTDD
--- NOTE | 2019-02-28 15:03 | NUR ---
*-* INSURANCE *-* ALL CLINICALS AND REVIEWS HAVE BEEN FAXED TO: [employer] CADENA: SANDRA F: [phone]
[2019-02-28 16:00] VITALS: BP 126/70
--- NOTE | 2019-02-28 17:31 | Pulmonology Progress Note ---
Assessment/Plan Assessment/Plan Pulmonary Progress Note Assessment/Plan: Impression: Severe Anemia sp TFN generalized weakness Metastatic Pancreatic cancer Elevated troponin, likely demand related Hypertension PE an DVT, s/p IVC filter GI bleed Awaiting TF to Hospice Plan: Transfuse PRN Xarelto with caution may need filter Protonix GI/Cardiology Consults PAN SHAKER medications PPX O2 PRN Hospice once organized impression, plan, and exam edited and reviewed in detail care discussed with RN Subjective Allergies: Coded Allergies: No Known Allergies (Unverified , 08/14/14) Subjective stable HH PE and DVT + Objective Vital Signs Noted Laboratory Tests Noted Objective WDWN NAD clear breath sounds bilaterally without rhonchi or wheeze [id number] without MRG NABS nontender no HSM no CCE nonfocal Subjective ROS Limited/Unobtainable: No Allergies: Coded Allergies: No Known Allergies (Unverified , 08/14/14) Objective Last 24 Hour Vital Signs Date Time Temp Pulse Resp B/P (MAP) Pulse Ox O2 Delivery O2 Flow Rate FiO2 02/28/19 12:00 72 02/28/19 12:00 97.7 76 20 125/62 (83) 99 02/28/19 09:00 Room Air 02/28/19 08:21 75 107/56 02/28/19 08:00 73 02/28/19 07:59 97.7 75 18 107/56 (73) 98 02/28/19 04:00 98.4 74 20 106/53 (70) 97 02/28/19 04:00 75 02/28/19 00:00 71 02/28/19 00:00 98.2 77 18 121/75 (90) 100 02/27/19 22:19 72 125/66 02/27/19 21:00 Room Air 02/27/19 20:00 76 02/27/19 20:00 99.1 72 17 125/66 (85) 97 Intake and Output 02/27/19 02/28/19 19:00 07:00 Intake Total 140 ml Output Total 500 ml Balance 140 ml -500 ml Intake Oral 140 ml Output Urine Total 500 ml # Voids 2 Laboratory Tests 02/28/19 05:42: White Blood Count 7.4, Red Blood Count 2.86L, Hemoglobin 7.0L, Hematocrit 22.2L , Mean Corpuscular Volume 78L, Mean Corpuscular Hemoglobin 24.6L, Mean Corpuscular Hemoglobin Concent 31.7L, Red Cell Distribution Width 18.3H, Platelet Count 109L, Mean Platelet Volume 7.0, Neutrophils (%) (Auto) , Lymphocytes (%) (Auto) , Monocytes (%) (Auto) , Eosinophils (%) (Auto) , Basophils (%) (Auto) , Differential Total Cells Counted 100, Neutrophils % ( Manual) 72, Lymphocytes % (Manual) 17L, Monocytes % (Manual) 8, Eosinophils % ( Manual) 2, Basophils % (Manual) 1, Band Neutrophils 0, Platelet Estimate DecreasedL, Platelet Morphology Normal, Polychromasia 1+, Hypochromasia 3+, Anisocytosis 2+, Microcytosis 1+, Sodium Level 136, Potassium Level 3.8, Chloride Level 103, Carbon Dioxide Level 24, Anion Gap 9, Blood Urea Nitrogen 13 , Creatinine 0.6, Estimat Glomerular Filtration Rate > 60, Glucose Level 142H, Calcium Level 8.4L Current Medications Medications (Trade) Dose Ordered Sig/Mark Route PRN Reason Start Time Stop Time Status Last Admin Dose Admin Acetaminophen (Tylenol) 650 mg Q6H PRN ORAL Mild Pain/Temp > 100.5 02/25/19 22:45 03/25/19 22:44 Carvedilol (Coreg) 12.5 mg EVERY 12 HOURS ORAL 02/26/19 09:00 03/28/19 08:59 02/27/19 22:19 Hydromorphone HCl (Dilaudid) 0.5 mg Q3HR PRN IVP For Pain 02/25/19 23:00 03/04/19 22:59 02/27/19 03:46 Hydromorphone HCl (Dilaudid) 1 mg Q4H PRN IVP Severe Pain (Pain Scale 7-10) 02/27/19 09:30 03/06/19 09:29 02/28/19 16:04 Iron Sucrose 100 mg/Sodium Chloride 60 ml @ 240 mls/hr BEDTIME IV 02/26/19 21:00 03/02/19 21:14 02/27/19 21:41 Lidocaine HCl (Xylocaine 1% 30ml) 30 ml NOW PRN INJ Radiology Procedure 02/26/19 13:30 03/01/19 13:25 Magnesium Hydroxide (Mom) 30 ml DAILYPRN PRN ORAL Constipation 02/26/19 17:45 03/27/19 17:44 Ondansetron HCl (Zofran) 4 mg Q6H PRN IVP Nausea & Vomiting 02/25/19 23:45 03/25/19 23:44 Pantoprazole (Protonix) 40 mg EVERY 12 HOURS IVP 02/26/19 09:00 03/26/19 08:59 02/28/19 08:21 Jimbo Piper MD Feb 28, 2019 17:31
--- NOTE | 2019-02-28 18:32 | General Progress Note ---
Assessment/Plan Assessment/Plan: Assessment - anemia - declining H&H noted - Iron deficiency - metastatic pancreatic cancer - abd pain - tumor cachexia - elevated Trop - DVT / PE - s/p IVC filter - OB (+) Recommendations - supportive care - monitor CBC / transfuse PRN - push po - IV Fe - PPI - Oncology f/u - EGD if shows active bleeding Subjective Allergies: Coded Allergies: No Known Allergies (Unverified , 08/14/14) Subjective Above noted feels OK still notes L leg swelling Objective Last 24 Hour Vital Signs Date Time Temp Pulse Resp B/P (MAP) Pulse Ox O2 Delivery O2 Flow Rate FiO2 02/28/19 16:00 97.0 76 20 126/70 (88) 99 02/28/19 16:00 78 02/28/19 12:00 72 02/28/19 12:00 97.7 76 20 125/62 (83) 99 02/28/19 09:00 Room Air 02/28/19 08:21 75 107/56 02/28/19 08:00 73 02/28/19 07:59 97.7 75 18 107/56 (73) 98 02/28/19 04:00 98.4 74 20 106/53 (70) 97 02/28/19 04:00 75 02/28/19 00:00 71 02/28/19 00:00 98.2 77 18 121/75 (90) 100 02/27/19 22:19 72 125/66 02/27/19 21:00 Room Air 02/27/19 20:00 76 02/27/19 20:00 99.1 72 17 125/66 (85) 97 Intake and Output 02/27/19 02/28/19 18:59 06:59 Intake Total 140 ml Output Total 500 ml Balance 140 ml -500 ml Intake Oral 140 ml Output Urine Total 500 ml # Voids 2 Laboratory Tests 02/28/19 05:42: White Blood Count 7.4, Red Blood Count 2.86L, Hemoglobin 7.0L, Hematocrit 22.2L , Mean Corpuscular Volume 78L, Mean Corpuscular Hemoglobin 24.6L, Mean Corpuscular Hemoglobin Concent 31.7L, Red Cell Distribution Width 18.3H, Platelet Count 109L, Mean Platelet Volume 7.0, Neutrophils (%) (Auto) , Lymphocytes (%) (Auto) , Monocytes (%) (Auto) , Eosinophils (%) (Auto) , Basophils (%) (Auto) , Differential Total Cells Counted 100, Neutrophils % ( Manual) 72, Lymphocytes % (Manual) 17L, Monocytes % (Manual) 8, Eosinophils % ( Manual) 2, Basophils % (Manual) 1, Band Neutrophils 0, Platelet Estimate DecreasedL, Platelet Morphology Normal, Polychromasia 1+, Hypochromasia 3+, Anisocytosis 2+, Microcytosis 1+, Sodium Level 136, Potassium Level 3.8, Chloride Level 103, Carbon Dioxide Level 24, Anion Gap 9, Blood Urea Nitrogen 13 , Creatinine 0.6, Estimat Glomerular Filtration Rate > 60, Glucose Level 142H, Calcium Level 8.4L Height (Feet): 5 Height (Inches): 8.00 Weight (Pounds): 144 Objective Thin man NCAT supple CTA RR abd soft, (+) TTP no edema Afsaneh Hollingswroth MD Feb 28, 2019 18:32
--- NOTE | 2019-02-28 19:28 | NUR ---
HAND-OFF: Report given to Effie SUERO. Patient stable. Plan of care endorsed.
--- NOTE | 2019-02-28 19:30 | NUR ---
NURSE NOTES: Received report from PIO Mckay. Patient is awake, lying in bed with HOB 30 degrees; resting comfortably. A/Ox4. Primarily Mongolian speaking. Denies pain at this time. No signs of acute distress noted. Checked IV site and flushed. No erythema, bleeding or infiltration noted. Bed at lowest position, brakes on, siderailsx3. Call light within reach. Will continue to monitor.
[2019-02-28 20:00] VITALS: BP 121/72
[2019-02-28] MEDS: Iron Sucrose 100 MG in NS 55 ML IV SCH (20:08)
[2019-02-28] MEDS ORDERED: Hydromorphone 0.5mg/0.5ml inj IVP PRN (20:45)
[2019-03-01] VITALS: BP 130/77
--- NOTE | 2019-03-01 | Progress Note ---
DATE: 02/28/2019 CARDIOLOGY PROGRESS NOTE SUBJECTIVE: IVC filter was placed. Anticoagulation cannot be resumed due to recurring anemia and Hemoccult-positive stools. The patient with no new complaints. OBJECTIVE: VITAL SIGNS: Blood pressure 121/72, pulse 79, respirations 17. LUNGS: Diminished breath sounds. HEART: Regular rhythm and rate. Normal S1, S2. ABDOMEN: Soft. EXTREMITIES: 1+ dependent edema. LABORATORY DATA: Hemoglobin is 7. Potassium 3.8. IMPRESSION: 1. Metastatic pancreatic carcinoma. 2. DVT and pulmonary embolism, status post IVC filter. 3. Iron-deficiency. 4. GI bleeding. PLAN: 1. Possible transfusion. 2. Pain control. 3. No plan for anticoagulation at this time. 4. Discharge planning. Jimbo Velasquez M.D. DR: ELIAS JOB#: [id number] CC:
--- NOTE | 2019-03-01 03:36 | NUR ---
NURSE NOTES: Resting throughout the night. No significant change of condition noted. Will continue to monitor.
[2019-03-01 04:00] VITALS: BP 125/70
[2019-03-01] MEDS: HYDROmorphone 1mg/ml Carpuject IVP PRN ×2 (04:10→08:14)
--- NOTE | 2019-03-01 07:15 | NUR ---
HAND-OFF: Report given to PIO Mckay. Plan of care endorsed.
--- NOTE | 2019-03-01 07:34 | NUR ---
NURSE NOTES: Patient stable, AOx4 with no complaints and no s/sx of distress. RR even and unlabored on RA. CHER sykes on. Requesting pain meds at this time. Side rails upx2, call light within reach, bed low and locked. Will continue to monitor.
[2019-03-01 07:56] VITALS: BP 128/79
[2019-03-01] MEDS: Pantoprazole Inj IVP SCH (08:14)
[2019-03-01 08:15] VITALS: BP 128/79
[2019-03-01] MEDS: Carvedilol 6.25mg Tab ORAL SCH (08:15)
[2019-03-01 08:18] LABS: HEMATOCRIT 22.7 % (42.0-52.0); HEMOGLOBIN 7.1 G/DL (14.2-18.0); MEAN CORPUSCULAR VOLUME 78 FL (80-99); PLATELET COUNT 115 K/UL (150-450); RED CELL DISTRIBUTION WIDTH 18.4 % (11.6-14.8); WHITE BLOOD COUNT 7.6 K/UL (4.8-10.8)
--- NOTE | 2019-03-01 09:28 | General Progress Note ---
Assessment/Plan Assessment/Plan: Impression: Severe Anemia generalized weakness Metastatic Pancreatic cancer Elevated troponin, likely demand related Hypertension PE an DVT s/p IVC filter Plan: dc home with hospice prognosis poor impression, plan, and exam edited and reviewed in detail care discussed with RN Subjective Allergies: Coded Allergies: No Known Allergies (Unverified , 08/14/14) Subjective s/p IVC filter PE and DVT + Objective Last 24 Hour Vital Signs Date Time Temp Pulse Resp B/P (MAP) Pulse Ox O2 Delivery O2 Flow Rate FiO2 03/01/19 08:15 77 128/79 03/01/19 07:56 98.1 77 20 128/79 (95) 99 03/01/19 04:40 98.2 03/01/19 04:00 98.1 78 19 125/70 (88) 100 03/01/19 04:00 78 03/01/19 00:00 98.2 72 20 130/77 (94) 97 03/01/19 00:00 74 02/28/19 21:00 Room Air 02/28/19 20:09 79 121/72 02/28/19 20:00 72 02/28/19 20:00 98.2 79 17 121/72 (88) 100 02/28/19 16:00 97.0 76 20 126/70 (88) 99 02/28/19 16:00 78 02/28/19 12:00 72 02/28/19 12:00 97.7 76 20 125/62 (83) 99 Intake and Output 02/28/19 03/01/19 19:00 07:00 Intake Total 730 ml Output Total 300 ml Balance 430 ml Intake Oral 730 ml Output Urine Total 300 ml # Voids 1 3 # Bowel Movements 1 1 Laboratory Tests 03/01/19 06:32: White Blood Count 7.6, Red Blood Count 2.90L, Hemoglobin 7.1L, Hematocrit 22.7L , Mean Corpuscular Volume 78L, Mean Corpuscular Hemoglobin 24.5L, Mean Corpuscular Hemoglobin Concent 31.3L, Red Cell Distribution Width 18.4H, Platelet Count 115L, Mean Platelet Volume 8.0, Neutrophils (%) (Auto) , Lymphocytes (%) (Auto) , Monocytes (%) (Auto) , Eosinophils (%) (Auto) , Basophils (%) (Auto) , Neutrophils % (Manual) [Pending], Lymphocytes % (Manual) [Pending], Platelet Estimate [Pending], Platelet Morphology [Pending] Height (Feet): 5 Height (Inches): 8.00 Weight (Pounds): 144 Objective WDWN NAD clear breath sounds bilaterally without rhonchi or wheeze [id number] without MRG NABS nontender no HSM no CC le edema nonfocal Roberth Hernandez MD Mar 01, 2019 09:28
[2019-03-01] MEDS ORDERED: Tubing IV Secondary IV ONE (11:14)
--- NOTE | 2019-03-01 11:15 | NUR ---
NURSE NOTES: Patient discharged via ambulance. [facility] arranged for home care. Discharge paper work given along with medications brought from home. All belongings with patient. Patient stable at this time with minimal complaints of pain and no s/sx of distress. RR even and unlabored on RA. Dr. Hernandez rounded on patient and saw him before his discharge.
--- NOTE | 2019-03-01 16:41 | General Progress Note ---
Assessment/Plan Assessment/Plan: Assessment - anemia - Iron deficiency - metastatic pancreatic cancer - abd pain - tumor cachexia - elevated Trop - DVT / PE - s/p IVC filter - OB (+) Recommendations - supportive care - monitor CBC / transfuse PRN - push po - IV Fe - PPI - Oncology f/u Subjective Allergies: Coded Allergies: No Known Allergies (Unverified , 08/14/14) Subjective Above noted feels OK for discharge today Objective Last 24 Hour Vital Signs Date Time Temp Pulse Resp B/P (MAP) Pulse Ox O2 Delivery O2 Flow Rate FiO2 03/01/19 09:00 Room Air 03/01/19 08:15 77 128/79 03/01/19 08:00 78 03/01/19 07:56 98.1 77 20 128/79 (95) 99 03/01/19 04:40 98.2 03/01/19 04:00 98.1 78 19 125/70 (88) 100 03/01/19 04:00 78 03/01/19 00:00 98.2 72 20 130/77 (94) 97 03/01/19 00:00 74 02/28/19 21:00 Room Air 02/28/19 20:09 79 121/72 02/28/19 20:00 72 02/28/19 20:00 98.2 79 17 121/72 (88) 100 Intake and Output 02/28/19 03/01/19 19:00 07:00 Intake Total 730 ml Output Total 300 ml Balance 430 ml Intake Oral 730 ml Output Urine Total 300 ml # Voids 1 3 # Bowel Movements 1 1 Laboratory Tests 03/01/19 06:32: White Blood Count 7.6, Red Blood Count 2.90L, Hemoglobin 7.1L, Hematocrit 22.7L , Mean Corpuscular Volume 78L, Mean Corpuscular Hemoglobin 24.5L, Mean Corpuscular Hemoglobin Concent 31.3L, Red Cell Distribution Width 18.4H, Platelet Count 115L, Mean Platelet Volume 8.0, Neutrophils (%) (Auto) , Lymphocytes (%) (Auto) , Monocytes (%) (Auto) , Eosinophils (%) (Auto) , Basophils (%) (Auto) , Differential Total Cells Counted 100, Neutrophils % ( Manual) 69, Lymphocytes % (Manual) 18L, Monocytes % (Manual) 10, Eosinophils % ( Manual) 2, Basophils % (Manual) 1, Band Neutrophils 0, Platelet Estimate DecreasedL, Platelet Morphology Normal, Hypochromasia 3+, Anisocytosis 2+, Microcytosis 1+ Height (Feet): 5 Height (Inches): 8.00 Weight (Pounds): 144 Objective Thin man NCAT supple CTA RR abd soft, (+) TTP no edema Afsaneh Hollingsworth MD Mar 01, 2019 16:41
--- NOTE | 2019-03-02 23:00 | Progress Note ---
SUBJECTIVE: The patient is status post IVC filter. He is off anticoagulation despite pulmonary emboli, gastrointestinal blood loss, and severe anemia requiring recurring transfusions . OBJECTIVE: VITAL SIGNS: Blood pressure 126/79, pulse 77, and respiratory rate 20. LUNGS: Clear. CARDIAC: Regular. Normal S1 and S2 with a fourth heart sound. ABDOMEN: Soft. Slightly distended. EXTREMITIES: With trace dependent edema. IMPRESSION: 1. Metastatic pancreatic carcinoma. 2. Deep vein thrombosis with pulmonary emboli due to hypercoagulability. 3. Acute myocardial ischemia, precipitated by acute pulmonary embolic event and severe anemia. 4. Anemia, status post transfusion. PLAN: 1. Hospice care could be arranged. 2. Medication regimen at this time reviewed and reconciled for discharge with plans for anticoagulation due to severe bleeding risk. Jimbo Velasquez M.D. DR: SUSIE JOB#: [id number] CC:
--- NOTE | 2019-03-03 07:11 | Discharge Summary ---
Discharge Summary Discharge Summary _ DATE OF ADMISSION: 02/23/2019 DATE OF DISCHARGE: 03/01/2019 DISCHARGED BY: Dr. Hernandez REASON FOR ADMISSION: 58 years old male with history of metastatic pancreatic cancer with extensive liver metastasis , presented to emergency room complaining of increased weakness. Patient had surgery few weeks ago at [facility]. Patient was told that his cancer progressed and he was scheduled for chemotherapy/radiation. Since surgery patient had a fall and had increased pain in his abdomen, 10 out of 10 , sharp, nonradiating. Patient also reported palpitations, but no chest pain, no shortness of breath. He denied fever and chills. Upon evaluation vital signs revealed tachycardia , pulse oximetry was stable on room air. Laboratory work-up revealed no leukocytosis , severe anemia with hemoglobin 4 , hematocrit 13.8, platelet count 199 . Sodium 134. BUN 39 , creatinine 0.7. Glucose 256. AST 78 , ALT 104 , alkaline phosphatase 433. Lipase 39 . Troponin minimally elevated -0.067 .EKG revealed sinus tachycardia . Albumin 2.5. CT of the abdomen and pelvis demonstrated status post interval removal of CBD stent. Persistent pneumobilia indicating patency of the CBD . Multiply worsening liver hypodensity, consistent with metastatic neoplasm. Pancreatic head mass consistent with given history of pancreatic CA. Status post interval partial stomach resection. Prostate hypertrophy. Patient typed, crossed and started on blood transfusion. Patient was admitted for further management. CONSULTANTS: chaplain resident GI specialist Dr. Hollingsworth residential gas heat technician/oncologist Dr. Morillo HOSPITAL COURSE: Patient admitted to telemetry floor. Patient was transfused Patient started on IV fluids and IV Protonix. Supplemental oxygen provided and titrated to keep pulse oximetry above 92%. Home medication resumed. Av Specialist and GI specialist followed. Venous duplex bilateral lower extremity revealed acute thrombus in bilateral legs. CTA of the chest revealed evidence of multisegment bilateral pulmonary emboli. Pneumobilia. Evidence of liver metastasis. Sternotomy. Patient undergone IVC filter on 02/27. Supportive care provided. Pain management was addressed. Patient undergone transfusion of total of 3 units of packed red blood cells while in the hospital. Hemoglobin and hematocrit were closely monitored with goal to keep hemoglobin above 7. Anemia work-up revealed evidence of anemia of iron deficiency. Patient was on IV iron. Stool for occult blood was positive. Prior to discharge hemoglobin 7.1 , hematocrit 22.7. Per chaplain resident troponin elevation was likely due to severe anemia in setting of widely metastatic pancreatic cancer. Tawer/oncologist followed . Per oncologist, patient has stage IV pancreatic cancer with liver metastases not amenable to surgical resection . Resection was attempted in the past and was unsuccessful. Elevated tumor markers: CEA 119 , CA-19-9 111. Cancer was likely the cause of anemia. Patient initially started on anticoagulation with Xarelto for PE and bilateral DVT, however due to significant drop in hemoglobin / hematocrit , - IVC filter was placed. Peripheral blood smear showed no evidence of hemolysis. GI specialist followed and recommended push oral fluids , conservative management , push oral fluids , IV iron and PPI. Renal parameters and electrolytes were closely monitor , electrolytes corrected as needed , and nephrotoxic were avoided. Supportive care provided. Poor prognosis and further goals of care were discussed with patient and family, who opted for hospice services. Patient subsequently was discharged home with hospice services to follow. FINAL DIAGNOSES: Severe anemia, s/p transfusion Episode of generalized weakness Metastatic pancreatic carcinoma/stage IV pancreatic cancer with liver mets DVT bilateral lower extremities Pulmonary emboli Status post IVC filter Acute myocardial ischemia /precipitated by acute pulmonary embolic event and severe anemia Iron deficiency anemia Tumor cachexia Hypertension DISCHARGE MEDICATIONS: List of medication was sent with patient DISCHARGE INSTRUCTIONS: Patient was discharged home with hospice services. I have been assigned to dictate discharge summary for this account. I was not involved in the patient's management. Kanwal Rodriguez NP Mar 03, 2019 07:11
--- NOTE | 2019-03-04 13:43 | NUR ---
*-* INSURANCE *-* DISCHARGE SUMMARY HAS BEEN FAXED TO: MYKE CADENA: SANDRA F: [phone]
== END 2019-03-01 11:15 | disposition hospice, home (50) | DRG 281 ==
LOC: EDBD 17:53 → EMR 18:55 → EDBEDREQ 19:17 → 2W 19:56 → EDBEDREQ 22:01 → EDBEDREQSVC 22:01 → EDBEDREQ 22:24 → 2E 02-25 21:11
PROC: 06H03DZ Insertion of Intraluminal Device into Inferior Vena Cava, Percutaneous Approach (ICD-10-PCS; principal; 2019-02-27)
DX: C25.0 Malignant neoplasm of head of pancreas (principal); D50.9 Iron deficiency anemia, unspecified; I26.99 Other pulmonary embolism without acute cor pulmonale; C78.7 Secondary malignant neoplasm of liver and intrahepatic bile duct; Z68.1 Body mass index [BMI] 19.9 or less, adult; I11.9 Hypertensive heart disease without heart failure; R00.2 Palpitations; I82.413 Acute embolism and thrombosis of femoral vein, bilateral; I82.431 Acute embolism and thrombosis of right popliteal vein; I82.441 Acute embolism and thrombosis of right tibial vein; I82.492 Acute embolism and thrombosis of other specified deep vein of left lower extremity; R64 Cachexia; I51.3 Intracardiac thrombosis, not elsewhere classified; D69.6 Thrombocytopenia, unspecified; D68.69 Other thrombophilia
CPT/HCPCS: 36415; 71275; 74177; 76937; 80048; 80053; 82105; 82248; 82270; 82378; 82728; 82746; 82962; 83540; 83550; 83615; 83690; 84484; 85007; 85025; 85044; 85610; 85730; 86850; 86900; 86901; 86920; 93005; 93970; 96361; 96374; 99291; J7030

== ENCOUNTER 2019-03-10 15:08 | Emergency (ER) | payer OTHER ==
[~2019-03-10] VITALS: Ht 172.7 cm; Wt 61.2 kg
[~2019-03-10 15:08] MED LIST changes: +CARVEDILOL6.25 MG ORAL; +CLOPIDOGREL75 MG ORAL; +LISINOPRIL5 MG ORAL; +NORCO 10/3251 EA ORAL
[2019-03-10 15:15] VITALS: BP 130/78
[2019-03-10] MEDS ORDERED: Morphine Sulfate 4mg/ml Inj (IV USE ONLY) IVP ONE ×2 (15:15→15:45)
--- NOTE | 2019-03-10 15:42 | Emergency Room Report ---
History of Present Illness General Chief Complaint: Altered Level of Consciousness Source: Patient, EMS Present Illness HPI Patient was brought in by paramedics was reported to have had fentanyl patches On patient appears to be getting more lethargic paramedics were summoned and patient was provided with Narcan soon after that the patient awoke With significant vomiting and shaking Patient has reports an history of pancreatic cancer Metastatic disease there have been reports that the patient Is going to be initiating chemo and radiation however surgical process at [place] over a month ago reported that the patient Did not meet further criteria for surgery Upon arrival the patient is able to open his eyes However acutely agitated nauseated Allergies: Coded Allergies: No Known Allergies (Unverified , 08/14/14) Patient History Past Medical History: see triage record Reviewed Nursing Documentation: PMH: Agreed; PSxH: Agreed Nursing Documentation-PMH Past Medical History: No History, Except For Hx Cardiac Problems: Yes Hx Hypertension: Yes Hx Cancer: Yes Review of Systems All Other Systems: negative except mentioned in HPI Physical Exam Vital Signs Date Time Temp Pulse Resp B/P (MAP) Pulse Ox O2 Delivery O2 Flow Rate FiO2 03/10/19 15:02 91 28 130/78 (95) 98 Nasal Cannula 2.0 Sp02 EP Interpretation: reviewed, normal General Appearance: moderate distress - Agitated tremulous Head: normocephalic, atraumatic Eyes: bilateral eye other - Dilated bilaterally ENT: EOM grossly intact Neck: supple, no meningismus Respiratory: lungs clear, no retraction, crackles Cardiovascular #1: tachycardia Gastrointestinal: non tender, soft, other - Evidence of previous surgery lower abdominal scar Musculoskeletal: other - Patient does not follow commands at this time however localizes towards physical stimuli Neurologic: other - Patient was able to make eye contact reported that he felt nauseated however very limited history and exam is able to be obtained given his uncomfortable presentation Skin: mottled Lymphatic: no adenopathy Medical Decision Making Diagnostic Impression: Primary Impression: Pancreatic cancer Additional Impression: Opiate withdrawal ER Course Given the patient's history and presentation there is concern regarding acute withdrawal of chronic dosing of opiate medication secondary to pancreatic cancer Patient received repeat doses of morphine and has done significantly better with this there is discrepancy with reports from the family And my discussion with the hospice care Family reports that the hospice care had reported that the patient needed to present to the emergency room secondary to intractable pain Hospice reports that the family has wanted to keep the patient as a full CODE STATUS, and has had difficulty dealing with the patient's end-of-life status with significantly rapid deterioration Patient at this time doing better however does not appear that is able to maintain appropriate status at home and requested for further inpatient care Labs Test 03/10/19 16:00 Sodium Level 132 MMOL/L (136-145) Potassium Level 5.9 MMOL/L (3.5-5.1) Chloride Level 96 MMOL/L (98-107) Carbon Dioxide Level 23 MMOL/L (21-32) Anion Gap 13 mmol/L (5-15) Blood Urea Nitrogen 60 mg/dL (7-18) Creatinine 1.8 MG/DL (0.55-1.30) Estimat Glomerular Filtration Rate 38.9 mL/min (>60) Glucose Level 183 MG/DL (74-106) Calcium Level 8.7 MG/DL (8.5-10.1) Total Bilirubin 0.8 MG/DL (0.2-1.0) Aspartate Amino Transf (AST/SGOT) 140 U/L (15-37) Alanine Aminotransferase (ALT/SGPT) 48 U/L (12-78) Alkaline Phosphatase 475 U/L (46-116) Total Creatine Kinase 6577 U/L (26-308) Troponin I 0.000 ng/mL (0.000-0.056) Total Protein 6.2 G/DL (6.4-8.2) Albumin 2.2 G/DL (3.4-5.0) Globulin 4.0 g/dL Albumin/Globulin Ratio 0.6 (1.0-2.7) Lipase 33 U/L (73-393) Rhythm Strip Diag. Results EP Interpretation: yes Rate: 77 Rhythm: NSR, no PVC's, no ectopy Chest X-Ray Diagnostic Results Chest X-Ray Diagnostic Results : Chest X-Ray Ordered: Yes # of Views/Limited/Complete: 1 View Indication: Chest Pain EP Interpretation: Yes Interpretation: no consolidation, no effusion, no pneumothorax Impression: No acute disease Electronically Signed by: Zelda Krause DO Last Vital Signs Date Time Temp Pulse Resp B/P (MAP) Pulse Ox O2 Delivery O2 Flow Rate FiO2 03/10/19 15:02 91 28 130/78 (95) 98 Nasal Cannula 2.0 Status: improved Disposition: XFER SHT-TRM HOSP Condition: Serious Referrals: [facility],REFERR[facility] (PCP) Zelda Krause DO Mar 10, 2019 15:42
[2019-03-10 16:49] LABS: ALANINE AMINOTRANSFERASE 48 U/L (12-78); ALBUMIN 2.2 G/DL (3.4-5.0); ALBUMIN/GLOBULIN RATIO 0.6 (1.0-2.7); ALKALINE PHOSPHATASE 475 U/L (46-116); ANION GAP 13 mmol/L (5-15); ASPARTATE AMINO TRANSFERASE 140 U/L (15-37); BILIRUBIN,TOTAL 0.8 MG/DL (0.2-1.0); BLOOD UREA NITROGEN 60 mg/dL (7-18); CALCIUM 8.7 MG/DL (8.5-10.1); CARBON DIOXIDE 23 MMOL/L (21-32); CHLORIDE 96 MMOL/L (98-107); CREATINE KINASE 6577 U/L (26-308); CREATININE 1.8 MG/DL (0.55-1.30); POTASSIUM 5.9 MMOL/L (3.5-5.1); SODIUM 132 MMOL/L (136-145)
--- NOTE | 2019-03-10 16:58 | Diagnostic Imaging Report ---
Indication: Chest pain Technique: One view of the chest Comparison: 01/25/2019 Findings: Lungs and pleural spaces are clear. Heart size is normal. Median sternotomy sutures are again demonstrated. Thickening of the minor fissure is again demonstrated. Old calcified granuloma is again demonstrated the right upper lobe. There is evidence of prior right-sided rotator cuff surgery. Findings are unchanged Impression: No acute process
[2019-03-10] MEDS ORDERED: HYDROmorphone 1mg/ml Carpuject ONE (17:40)
[2019-03-10] MEDS ORDERED: HYDROmorphone 1mg/ml Carpuject IVP ONE (17:45)
[2019-03-10 19:15] VITALS: BP 130/78
--- NOTE | 2019-03-20 13:55 | Cardiology Report ---
APPROVED REPORT EKG Measurement Heart [id number] <Conclusion> Sinus tachycardia Low voltage QRS Possible Lateral infarct, age undetermined Inferior infarct, age undetermined Abnormal ECG
== END 2019-03-10 19:20 | disposition short-term general hospital (02) ==
LOC: EDBD 15:08 → EMR 15:26
DX: C25.9 Malignant neoplasm of pancreas, unspecified (principal); F11.23 Opioid dependence with withdrawal; Y92.9 Unspecified place or not applicable; I10 Essential (primary) hypertension
CPT/HCPCS: 36415; 71045; 80053; 82550; 83690; 84484; 93005; 96361; 96374; 96375; 96376; J1170; J2270; J2405; J7030; Z7502; 99284